=== PATIENT | female | born 1940 | race Caucasian/White ===

== ENCOUNTER 2019-12-21 05:30 | Emergency (ER) | payer MEDICARE ==
[~2019-12-21] VITALS: Ht 162.6 cm; Wt 89.6 kg
--- NOTE | 2019-12-21 06:19 | REPVR ---
PROCEDURE INFORMATION: Exam: CT Head Without Contrast Exam date and time: 12/21/2019 5:34 AM Age: 79 years old Clinical indication: Injury or trauma; Fall; Initial encounter; Concussion / head injury; Additional info: Fall on coumadin hit head TECHNIQUE: Imaging protocol: Computed tomography of the head without contrast. Radiation optimization: All CT scans at this facility use at least one of these dose optimization techniques: automated exposure control; mA and/or kV adjustment per patient size (includes targeted exams where dose is matched to clinical indication); or iterative reconstruction. COMPARISON: No relevant prior studies available. FINDINGS: Brain: No acute intracerebral abnormality or injury. No acute infarct or intracerebral bleed. Mild age-appropriate cerebral atrophy with patchy periventricular leukomalacia in both cerebral hemispheres, consistent with chronic underlying small vessel ischemic disease. Ventricles: Normal. No ventriculomegaly. Bones/joints: Unremarkable. No acute fracture. Sinuses: Visualized sinuses are unremarkable. No fluid levels. Mastoid air cells: Visualized mastoid air cells are well aerated. Soft tissues: Soft tissue swelling and subcutaneous contusion is seen in the right paramedian frontal scalp on image 12 of series 201, with no underlying calvarial fractures identified. IMPRESSION: 1. Soft tissue swelling and subcutaneous contusion is seen in the right paramedian frontal scalp on image 12 of series 201, with no underlying calvarial fractures identified. 2. No acute intracerebral abnormality or injury. No acute infarct or intracerebral bleed. 3. Mild age-appropriate cerebral atrophy with patchy periventricular leukomalacia in both cerebral hemispheres, consistent with chronic underlying small vessel ischemic disease. Electronically signed by: Carlito Grady On 12/21/2019 06:19:45 AM
[2019-12-21] MEDS ORDERED: MORPHINE 2 MG/ML 1ML VIAL (J2270) IV PRN (06:45)
--- NOTE | 2019-12-21 06:47 | REP ---
Clinical: Trauma. Fall. Technique: Two portable views of the left humerus. Findings: There is a displaced oblique fracture through the mid left humeral shaft. Impression: Oblique mid humeral shaft fracture. Electronically Signed by Lionel Leone MD 12/21/2019 06:38 A
--- NOTE | 2019-12-21 06:51 | REP ---
Clinical: Trauma. Fall. Comparison: None. Findings: Cardiomegaly is appreciated along with diffuse increased interstitial markings as well as suspected pulmonary vascular congestion and interstitial edema. Ovoid density in the right mid lung zone is nonspecific but may represent trapped fluid (pseudotumor) versus mass. No obvious effusion or pneumothorax. Skeletal structures demonstrate osteopenia and degenerative changes without obvious acute fracture. Impression: 1. Cardiomegaly with presumed acute/chronic pulmonary vascular congestion and interstitial edema as well as diffuse chronic changes. 2. Ovoid density in the right mid lung zone. Differential diagnosis includes but is not limited to trapped fluid (pseudotumor), consolidation, and mass lesion Electronically Signed by Lionel Leone MD 12/21/2019 06:42 A
--- NOTE | 2019-12-21 06:58 | REPVR ---
PROCEDURE INFORMATION: Exam: CT Cervical Spine Without Contrast Exam date and time: 12/21/2019 5:34 AM Age: 79 years old Clinical indication: Neck pain; Additional info: Fall on coumadin hit head TECHNIQUE: Imaging protocol: Computed tomography images of the cervical spine without contrast. Radiation optimization: All CT scans at this facility use at least one of these dose optimization techniques: automated exposure control; mA and/or kV adjustment per patient size (includes targeted exams where dose is matched to clinical indication); or iterative reconstruction. COMPARISON: No relevant prior studies available. FINDINGS: Vertebrae: The cervical spine alignment in the sagittal plane shows mild, less than 10% anterolisthesis of C4 upon C5 and C7 upon T1, likely secondary to chronic degenerative ligamentous laxity. Chronic degenerative vertebral body endplate osteophytosis with diminished disc height and anterior longitudinal ligament calcification is seen at levels C5-C7. Discs/Spinal canal/Neural foramina: Chronic degenerative bony neuroforaminal stenosis secondary to uncal joint and posterior facet joint arthropathy, bilaterally at C3/C4 and on the right at C4/C5 and bilaterally at C5/C6 and C6/C7. No significant spinal canal stenoses. Other bones/joints: No acute fractures identified. Soft tissues: Unremarkable prevertebral and posterior paraspinal soft tissues. Lungs: Lung apices are normal. IMPRESSION: 1. No acute fractures identified. 2. The cervical spine alignment in the sagittal plane shows mild, less than 10% anterolisthesis of C4 upon C5 and C7 upon T1, likely secondary to chronic degenerative ligamentous laxity. 3. Chronic degenerative vertebral body endplate osteophytosis with diminished disc height and anterior longitudinal ligament calcification is seen at levels C5-C7. 4. Chronic degenerative bony neuroforaminal stenosis secondary to uncal joint and posterior facet joint arthropathy, bilaterally at C3/C4 and on the right at C4/C5 and bilaterally at C5/C6 and C6/C7. 5. No significant spinal canal stenoses. Electronically signed by: Carlito Grady On 12/21/2019 06:58:08 AM
[2019-12-21] MEDS ORDERED: DILUENT IV ONE (07:15)
[2019-12-21] MEDS ORDERED: PROTHROMBIN COMPLEX CONCENTRAT IV ONE (07:15)
[2019-12-21] MEDS ORDERED: PHYTONADIONE INJection 5 MG in NS 50 ML IV ONE (07:15)
[2019-12-21 07:48] LABS: BASO % 0.2 % (0.0-1.0); EOS % 0.4 % (0.0-3.0); HEMATOCRIT 43.1 % (36.0-47.0); HEMOGLOBIN 12.4 g/dl (12.0-15.5); LYMPH # 0.6 10^3/uL (1.5-5.0); MEAN CORPUSCULAR HEMOGLOBIN 25.1 pg (27.0-33.0); MEAN CORPUSCULAR HGB CONC 28.8 g/dl (32.0-36.5); MEAN CORPUSCULAR VOLUME 87.1 fl (80.0-96.0); MONO # 0.5 10^3/uL (0.0-0.8); MONO % 5.5 % (0.0-5.0); NEUTROPHILS # 7.2 10^3/uL (1.5-8.5); NEUTROPHILS % 86.7 % (36.0-66.0); PLATELET COUNT, AUTOMATED 155 10^3/uL (150-450); RED BLOOD COUNT 4.95 10^6/uL (4.00-5.40); WHITE BLOOD COUNT 8.3 10^3/uL (4.0-10.0)
[2019-12-21 07:56] VITALS: BP 124/60
[2019-12-21 08:23] LABS: BLOOD UREA NITROGEN 12 MG/DL (7-18); CALCIUM LEVEL 6.6 MG/DL (8.8-10.2); CARBON DIOXIDE LEVEL 24 MEQ/L (21-32); CHLORIDE LEVEL 119 MEQ/L (98-107); CK-MB VALUE MASS 1.4 NG/ML (<3.6); CPK CREATINE PHOSPHOKINASE 100 U/L (26-192); CREATININE FOR GFR 0.55 MG/DL (0.55-1.30); GLOMERULAR FILTRATION RATE > 60.0 (>39); GLUCOSE, FASTING 45 MG/DL (70-100); POTASSIUM SERUM 3.7 MEQ/L (3.5-5.1); SODIUM LEVEL 149 MEQ/L (136-145); TROPONIN I 0.02 NG/ML (< 0.10)
--- NOTE | 2019-12-21 15:02 | ECGEPIP ---
[facility] - ED Test Date: 2019-12-21 Pat Name: GREY ABARCA Department: Room: - Gender: Female It Lead: JERICHO : 1940 Requested By: HANNAH Durant Order Number: [id number] Reading MD: Leanne Claros Measurements Intervals [place] Rate: 101 P: WV: 0 QRS: 97 QRSD: 93 T: 23 QT: 343 QTc: 446 Interpretive Statements ATRIAL FIBRILLATION WITH RAPID VENTRICULAR RESPONSE BORDERLINE RIGHT AXIS DEVIATION NONSPECIFIC ST & T-WAVE ABNORMALITY ABNORMAL RHYTHM ECG baseline artifact may affect interpretation NO PRIOR Electronically Signed on 12-21-2019 15:01:53 EST by Leanne Claros
== END 2019-12-21 08:02 | disposition short-term general hospital (02) ==
LOC: M ED 05:30
DX: S06.5X0A Traumatic subdural hemorrhage without loss of consciousness, initial encounter (principal); S06.6X0A Traumatic subarachnoid hemorrhage without loss of consciousness, initial encounter; S42.332A Displaced oblique fracture of shaft of humerus, left arm, initial encounter for closed fracture; W18.39XA Other fall on same level, initial encounter; Y92.018 Other place in single-family (private) house as the place of occurrence of the external cause
CPT/HCPCS: 70450; 71045; 72125; 73060; 80047; 80048; 82550; 82553; 84484; 85025; 86850; 86900; 86901; 93005; 96365; 96375; 99285; C9132; J2270; J3430

== ENCOUNTER → 2020-01-10 | Outpatient (REF) | payer MEDICARE ==
[2020-01-10 07:36] LABS: CALCIUM LEVEL 9.3 MG/DL (8.8-10.2); CREATININE FOR GFR 0.99 MG/DL (0.55-1.30); GLOMERULAR FILTRATION RATE 57.6 (>39); POTASSIUM SERUM 3.5 MEQ/L (3.5-5.1)
[2020-01-10 08:03] LABS: HEMOGLOBIN A1c 6.9 %
== END ==
LOC: SKLAB5 01:58
PROVIDERS: ATTEND Internal Medicine
DX: I50.9 Heart failure, unspecified (principal)

== ENCOUNTER → 2020-01-13 | Outpatient (CLI) | payer MEDICARE ==
--- NOTE | 2020-01-13 09:26 | ECHO ---
DATE OF PROCEDURE: 01/13/2020 REFERRING PHYSICIAN: Dr. Kolby Galan INDICATION: Congestive heart failure, aortic valve replacement, atrial fibrillation. The patient measures 5, 5 and weighs 175 pounds. Dimensions: IVS: 1.0 LV: 4.0 LVPW: 1.0 LA: 3.8 RV: 3.2 IVC: 1.4 Mitral E wave velocity averaging around 130. E prime septal: 5.1 E prime lateral: 5.9 FINDINGS: The study is of fair technical quality. The patient is in atrial fibrillation with controlled rate. Left ventricle is normal size. There is subtle septal wall motion abnormality but overall I estimate low normal LV systolic function, ejection fraction (EF) estimated around 50-55%. Right ventricle does not appear grossly enlarged and is normally contractile. There is severe biatrial enlargement. There is bioprosthetic valve in aortic position. It was poorly visualized and I cannot comment on its structure but based on available views it appears normal. There are heavy degenerative abnormalities of mitral valve with prominent mitral annular calcifications and thickening of mitral leaflets. Opening of the valve is preserved. Tricuspid valve is normal. Pulmonic valve also appears normal. No pericardial effusion is noted. Inferior vena cava is relatively small size and appropriately collapses with inspiration indicative of normal central venous pressure. Doppler interrogation of aortic valve reveals no insufficiency and normal gradient (mean gradient 8 mmHg). There is approximately [id number] mitral insufficiency and mild tricuspid insufficiency. Calculated pulmonary artery pressure is around 30 mmHg which indicates borderline pulmonary hypertension. Trace pulmonic insufficiency is seen. Evaluation of diastolic function is inconclusive due to underlying atrial fibrillation. CONCLUSIONS: 1. Study is of fair technical quality, patient is in atrial fibrillation with controlled rate and wide QRS complex. 2. Normal LV size with low normal LV systolic function, estimated left ventricular ejection fraction (LVEF) 50-55%. 3. Right ventricle (RV) is not dilated. 4. Severe biatrial enlargement. 5. Normally functioning bioprosthesis in aortic position. 6. Degenerative abnormalities of mitral valve leading to mild to moderate mitral insufficiency. 7. Normal central venous pressure. 8. Probably normal or borderline elevated pulmonary artery pressure. 9. Aortic arch and abdominal aorta were not seen. COMMENT: Subacute bacterial endocarditis (SBE) prophylaxis is recommended. MTDD
== END ==
LOC: M CARPUL 07:59
PROVIDERS: ATTEND Internal Medicine
DX: I50.9 Heart failure, unspecified (principal); I51.7 Cardiomegaly; I48.91 Unspecified atrial fibrillation; I34.0 Nonrheumatic mitral (valve) insufficiency

== ENCOUNTER → 2020-01-19 | Outpatient (REF) ==
[2020-01-19 09:30] LABS: BLOOD UREA NITROGEN 38 MG/DL (7-18); CALCIUM LEVEL 9.9 MG/DL (8.8-10.2); CARBON DIOXIDE LEVEL 35 MEQ/L (21-32); CHLORIDE LEVEL 95 MEQ/L (98-107); CREATININE FOR GFR 0.95 MG/DL (0.55-1.30); GLOMERULAR FILTRATION RATE > 60.0 (>39); GLUCOSE, FASTING 178 MG/DL (70-100); POTASSIUM SERUM 3.3 MEQ/L (3.5-5.1); SODIUM LEVEL 137 MEQ/L (136-145)
== END ==
LOC: SKLAB5 07:47
PROVIDERS: ATTEND Internal Medicine
DX: I50.9 Heart failure, unspecified (principal)

== ENCOUNTER → 2020-01-26 | Outpatient (REF) ==
[2020-01-26 09:49] LABS: BLOOD UREA NITROGEN 46 MG/DL (7-18); CALCIUM LEVEL 9.5 MG/DL (8.8-10.2); CARBON DIOXIDE LEVEL 34 MEQ/L (21-32); CHLORIDE LEVEL 95 MEQ/L (98-107); CREATININE FOR GFR 0.91 MG/DL (0.55-1.30); GLOMERULAR FILTRATION RATE > 60.0 (>39); GLUCOSE, FASTING 205 MG/DL (70-100); POTASSIUM SERUM 3.4 MEQ/L (3.5-5.1); SODIUM LEVEL 136 MEQ/L (136-145)
== END ==
LOC: SKLAB5 11:28
PROVIDERS: ATTEND Internal Medicine
DX: I50.9 Heart failure, unspecified (principal)

== ENCOUNTER → 2020-02-02 | Outpatient (REF) ==
[2020-02-02 09:17] LABS: BLOOD UREA NITROGEN 34 MG/DL (7-18); CALCIUM LEVEL 9.2 MG/DL (8.8-10.2); CARBON DIOXIDE LEVEL 32 MEQ/L (21-32); CHLORIDE LEVEL 97 MEQ/L (98-107); CREATININE FOR GFR 0.88 MG/DL (0.55-1.30); GLOMERULAR FILTRATION RATE > 60.0 (>39); GLUCOSE, FASTING 179 MG/DL (70-100); SODIUM LEVEL 137 MEQ/L (136-145)
== END ==
LOC: SKLAB5 07:48
PROVIDERS: ATTEND Internal Medicine
DX: I50.9 Heart failure, unspecified (principal)

== ENCOUNTER → 2020-02-06 | Outpatient (REF) ==
[2020-02-06 07:53] LABS: BLOOD UREA NITROGEN 33 MG/DL (7-18); CALCIUM LEVEL 9.3 MG/DL (8.8-10.2); CARBON DIOXIDE LEVEL 32 MEQ/L (21-32); CHLORIDE LEVEL 99 MEQ/L (98-107); CREATININE FOR GFR 0.94 MG/DL (0.55-1.30); GLOMERULAR FILTRATION RATE > 60.0 (>39); GLUCOSE, FASTING 140 MG/DL (70-100); SODIUM LEVEL 136 MEQ/L (136-145)
== END ==
LOC: SKLAB5 07:22
PROVIDERS: ATTEND Internal Medicine
DX: E87.6 Hypokalemia (principal)

== ENCOUNTER → 2020-02-09 | Outpatient (REF) | LOC: SKLAB5 08:35 | PROVIDERS: ATTEND Internal Medicine | DX: J44.9 Chronic obstructive pulmonary disease, unspecified (principal) ==

== ENCOUNTER → 2020-03-06 | Outpatient (REF) | payer MEDICARE ==
--- NOTE | 2020-03-06 15:54 | REPPI ---
CHEST, SINGLE VIEW: Single view of the chest is performed and compared to a prior study of 02/23/2020. There is again mild cardiomegaly. Interstitial opacities in the right lung base are stable. There is patchy parenchymal opacities laterally in the left base, which is unchanged. Mediastinal silhouette is unchanged. There are multiple sternal wires present. IMPRESSION: Mild cardiomegaly and bibasilar opacities unchanged. Electronically Signed by Lamin Garcia MD 03/06/2020 05:04 P
== END ==
PROVIDERS: ATTEND Registered Nurse
DX: R91.8 Other nonspecific abnormal finding of lung field (principal); I51.7 Cardiomegaly; J90 Pleural effusion, not elsewhere classified; R06.02 Shortness of breath

== ENCOUNTER → 2020-03-07 | Outpatient (REF) | payer MEDICARE ==
[2020-03-07 11:12] LABS: HEMATOCRIT 38.9 % (36.0-47.0); HEMOGLOBIN 12.4 g/dl (12.0-15.5); MEAN CORPUSCULAR HEMOGLOBIN 27.6 pg (27.0-33.0); MEAN CORPUSCULAR HGB CONC 31.9 g/dl (32.0-36.5); MEAN CORPUSCULAR VOLUME 86.4 fl (80.0-96.0); PLATELET COUNT, AUTOMATED 263 10^3/uL (150-450); WHITE BLOOD COUNT 8.8 10^3/uL (4.0-10.0)
[2020-03-07 11:21] LABS: CALCIUM LEVEL 9.8 MG/DL (8.8-10.2); CREATININE FOR GFR 1.13 MG/DL (0.55-1.30); GLOMERULAR FILTRATION RATE 49.4 (>39); POTASSIUM SERUM 4.2 MEQ/L (3.5-5.1)
== END ==
PROVIDERS: ATTEND Registered Nurse
DX: R06.02 Shortness of breath (principal)

== ENCOUNTER → 2020-03-14 | Outpatient (REF) | payer MEDICARE ==
[2020-03-14 10:14] LABS: CALCIUM LEVEL 9.2 MG/DL (8.8-10.2); CREATININE FOR GFR 1.47 MG/DL (0.55-1.30); GLOMERULAR FILTRATION RATE 36.5 (>39); POTASSIUM SERUM 3.8 MEQ/L (3.5-5.1)
== END ==
PROVIDERS: ATTEND Registered Nurse
DX: R06.02 Shortness of breath (principal)

== ENCOUNTER → 2020-03-26 | Outpatient (REF) | payer MEDICARE ==
--- NOTE | 2020-03-26 16:12 | REPPI ---
CHEST, SINGLE VIEW: Single view of the chest is performed and compared to a prior study of 03/06/2020. There is stable mild cardiomegaly. There are stable bibasilar parenchymal opacities. Mediastinal silhouette is unchanged. There are multiple sternal wires present. IMPRESSION: Stable exam. Electronically Signed by Lamin Garcia MD 03/26/2020 04:28 P
== END ==
PROVIDERS: ATTEND Registered Nurse
DX: R91.8 Other nonspecific abnormal finding of lung field (principal)

== ENCOUNTER → 2020-03-28 | Outpatient (CLI) | payer MEDICARE ==
--- NOTE | 2020-03-28 14:13 | REP ---
CT BRAIN WITHOUT CONTRAST: HISTORY: Subdural hematoma. Comparison head CT study December [address] FINDINGS: Vascular calcification is again noted in the distal vertebral and distal carotid arteries. The visualized paranasal sinuses are clear. No skull fracture is seen. The previously noted frontal scalp hematoma has resolved. There are small vessel atherosclerotic changes and generalized mild to moderate volume loss again seen unchanged. On the inner table of the skull in the left frontoparietal region, there is a 13 mm bony excrescence consistent with a calcified meningioma. This is unchanged from the comparison CT study of December 21, 2019. There is a tiny 4-5 mm similar excrescence the inner table of the skull on the right in the posterior frontal lobe region. This is also unchanged. The extra-axial hyperdense area in the left posterior frontal lobe on the recent prior study which was previously identified as a subdural hematoma is again seen. It is completely unchanged in size, density, and thickness. This suggests that it too may be a broad-based meningioma rather than a subdural hematoma. It measures 5 mm in greatest thickness x 28 mm in greatest anteroposterior dimension x 21 mm in greatest craniocaudal dimension unchanged from the prior study. If this had been an acute subdural hematoma we would expected to have involuted both in size and density. IMPRESSION: Findings most compatible with multiple small convexity meningiomas, the largest of which was previously felt to be compatible with an acute subdural hematoma. This is unchanged in the interval since the December 21, 2019 prior study. There are two smaller densely calcified meningiomas again seen as well. Generalized volume loss, small vessel changes, and vascular calcification are again noted. Electronically Signed by Santos Sofia MD 03/28/2020 02:39 P
== END ==
LOC: M RAD 13:29
PROVIDERS: ATTEND Neurological Surgery
DX: S06.5X9A Traumatic subdural hemorrhage with loss of consciousness of unspecified duration, initial encounter (principal)

== ENCOUNTER → 2020-05-07 | Outpatient (CLI) | payer MEDICARE, OTHER ==
--- NOTE | 2020-05-11 17:15 | SLEEPCENT ---
DATE OF PROCEDURE: 05/07/2020 ORDERED BY: JUNIOR Dewey Nocturnal polysomnography was performed for evaluation of sleep physiology in this patient with a history of snoring who has comorbidities of hypertension, heart failure, and diabetes. 8 hours and 3 minutes of data were reviewed. Only 96 minutes of sleep were identified. Sleep latency was prolonged at 166.5 minutes. Rapid eye movement (REM) sleep was not achieved. Sleep architecture showed poor progression. Overall sleep efficiency of 20.1%. The patient's electrocardiogram showed what appeared to be atrial fibrillation with an average heart rate of 76 beats per minute. Rate ranged 60-100. The electroencephalogram (EEG) showed reasonably normal waveforms for awake and sleep stages. There were 25 respiratory events identified of 10 seconds in duration or greater. During the interval, the patient did display sleep. The events were obstructive generating an apnea-hypopnea index of 15.6. The events were more six frequent but not exclusive to the supine posture. Arousals from respiratory events occurred 13.1 times per hour and oxygen desaturations were seen into the 80s. IMPRESSION: 1. Limited nocturnal polysomnography due to minimal sleep time. 2. Obstructive sleep apnea syndrome (G47.33). Apnea-hypopnea index 15.6. RECOMMENDATIONS: The patient had difficulty with sleep in the lab complaining of shoulder pain. Nonetheless, return to the sleep disorder center for pressure therapy is recommended. Perhaps interventions to address the patient's pain will improve sleep quality as well as pressure therapy.
== END ==
LOC: M SLEEP 20:00
PROVIDERS: ATTEND Physician Assistant
DX: R06.83 Snoring (principal); R09.02 Hypoxemia

== ENCOUNTER → 2020-09-11 | Outpatient (REF) | payer MEDICARE, OTHER ==
[2020-09-18 11:08] LABS: DOPAMINE PLASMA <30 pg/mL (0-48); EPINEPHRINE PLASMA 18 pg/mL (0-62); NOREPINEPHRINE PLASMA 660 pg/mL (0-874)
== END ==
LOC: M LAB REF 16:28
PROVIDERS: ATTEND Internal Medicine
DX: E27.9 Disorder of adrenal gland, unspecified (principal)

== ENCOUNTER → 2020-09-17 | Outpatient (CLI) | payer MEDICARE, OTHER ==
--- NOTE | 2020-09-17 13:44 | REP ---
INDICATION: F/U BILAT ADRENAL NODULES. COMPARISON: No available prior adrenal imaging.. TECHNIQUE: IV contrast was withheld in differences this patient's renal insufficiency.. Helical scanning is acquired without IV contrast and 3 mm axial images are generated. Coronal and sagittal MPR images are generated and reviewed. FINDINGS: Preliminary digital hospital librarian radiograph shows an unremarkable bowel gas pattern. Cardiomegaly and median sternotomy wires are noted. Axial CT images at this is lung bases demonstrate2 an area of parenchymal opacity in the left lower lobe consistent with an area of spiral atelectasis. There is adjacent pleural thickening. This may be postinflammatory. There is platelike atelectasis or linear fibrosis in the right base involving the right middle lobe. There is no evidence of pleural effusion or upper abdominal ascites. No focal hepatic or splenic lesion is seen. Axial CT images demonstrate bilateral low-density small oval-shaped adrenal nodules. Mean Hounsfield unit density on the right on this noncontrast study is -0.545. On the left a mean Hounsfield unit density of -13 is observed. These features are compatible with benign adrenal adenomas. The right-sided lesion measures 1.8 and the left 1.7 cm in diameter. No other adrenal lesion is seen. Peripherally calcified gallstones are seen within the lumen of the gallbladder. There is some gallbladder wall calcification at the fundus of the gallbladder. Vascular calcification is observed. No retroperitoneal mass or adenopathy is seen. Small and large bowel loops are unremarkable in the abdomen. No bony destructive lesion is seen. IMPRESSION: 1. Small benign adrenal adenomas bilaterally. Negative Hounsfield unit density numbers. 2. Spiral atelectasis left lower lobe. 3. Cholelithiasis. <Electronically signed by Porfirio Sofia > 09/17/20 [id number]
== END ==
LOC: M RAD 10:26
PROVIDERS: ATTEND Internal Medicine
DX: E27.8 Other specified disorders of adrenal gland (principal)

== ENCOUNTER → 2020-10-26 | Outpatient (REF) | payer MEDICARE, OTHER | PROVIDERS: ATTEND Internal Medicine | DX: Z20.828 Contact with and (suspected) exposure to other viral communicable diseases (principal) ==

== ENCOUNTER → 2020-10-31 | Outpatient (REF) | payer MEDICARE, OTHER ==
[2020-10-31 17:20] LABS: INFLUENZA A AMPLIFICATION NEGATIVE (NEGATIVE); INFLUENZA B AMPLIFICATION NEGATIVE (NEGATIVE)
== END ==
PROVIDERS: ATTEND Internal Medicine
DX: Z20.828 Contact with and (suspected) exposure to other viral communicable diseases (principal)
CPT/HCPCS: 87502; U0003

== ENCOUNTER → 2020-11-05 | Outpatient (REF) | payer MEDICARE, OTHER | PROVIDERS: ATTEND Internal Medicine | DX: Z20.828 Contact with and (suspected) exposure to other viral communicable diseases (principal) ==

== ENCOUNTER → 2020-11-12 | Outpatient (REF) | payer MEDICARE, OTHER | PROVIDERS: ATTEND Internal Medicine | DX: Z20.828 Contact with and (suspected) exposure to other viral communicable diseases (principal) ==

== ENCOUNTER → 2020-11-19 | Outpatient (REF) | payer MEDICARE, OTHER | PROVIDERS: ATTEND Internal Medicine | DX: Z11.52 Encounter for screening for COVID-19 (principal) ==

== ENCOUNTER → 2020-11-26 | Outpatient (REF) | payer MEDICARE, OTHER | PROVIDERS: ATTEND Internal Medicine | DX: Z20.822 Contact with and (suspected) exposure to COVID-19 (principal) ==

== ENCOUNTER → 2020-12-03 | Outpatient (REF) | payer MEDICARE, OTHER | PROVIDERS: ATTEND Internal Medicine | DX: Z20.822 Contact with and (suspected) exposure to COVID-19 (principal) ==

== ENCOUNTER → 2020-12-10 | Outpatient (REF) | payer MEDICARE, OTHER | PROVIDERS: ATTEND Internal Medicine | DX: Z20.822 Contact with and (suspected) exposure to COVID-19 (principal) ==

== ENCOUNTER → 2020-12-17 | Outpatient (REF) | payer MEDICARE, OTHER | PROVIDERS: ATTEND Internal Medicine | DX: Z20.822 Contact with and (suspected) exposure to COVID-19 (principal) ==

== ENCOUNTER → 2020-12-24 | Outpatient (REF) | payer MEDICARE, OTHER | PROVIDERS: ATTEND Internal Medicine | DX: Z20.822 Contact with and (suspected) exposure to COVID-19 (principal) ==

== ENCOUNTER → 2020-12-31 | Outpatient (REF) | payer MEDICARE, OTHER | PROVIDERS: ATTEND Internal Medicine | DX: Z20.822 Contact with and (suspected) exposure to COVID-19 (principal) ==

== ENCOUNTER → 2021-02-19 | Outpatient (CLI) | payer MEDICARE, OTHER, MEDICAID ==
--- NOTE | 2021-02-20 11:13 | ECHO ---
DATE OF PROCEDURE: 02/19/2021 Age: 80 Gender: Female Height: 65 inches Weight: 176 pounds Body Surface Area: 1.87 m2 PATIENT LOCATION: Outpatient. REFERRING PHYSICIAN: Kolby Galan MD. INDICATION: Heart murmur. MEASUREMENTS: 2D Measurements: RV 3.6 cm LV - 3.9 cm Septum 1.0 cm Posterior wall 1.0 cm Aortic Root 3.4 cm LA 4.2 cm LVEF 75% Doppler Measurements: AV 1.81 m/s LVOT 0.85 m/s LVOT diameter 1.8 cm MV-E 109, A 78, EA ratio 1.4 Early mitral deceleration time 277 msec E prime medial 5, A prime medial 4, E prime lateral 6.5 Average E/E prime ratio 19/PCWP 25.4 mmHg PV - 0.9 m/s Pulmonary artery acceleration time 114 msec PASP 32 mmHg IVC - 1.2 cm COMMENTS: Normal sinus rhythm without intraventricular conduction disturbance. Somewhat technically challenging study in light of the patient's body habitus, but diagnostically useful information was still obtained. M-mode and 2-dimensional echocardiography was performed with pulse, continuous wave, color flow, and tissue Doppler studies. Normal left ventricular size, wall thickness, and hyperkinetic wall motion. Mildly dilated left atrium with grade 2 LV diastolic dysfunction and elevated estimated mean left atrial pressure. Normal right heart chamber sizes and motion with Doppler evidence of mild pulmonary hypertension. Somewhat reduced IVC size with complete collapse against an elevated central venous pressure. Normal aortic diameters. Mild to moderate aortic valvular sclerosis with adequate cusp separation and no apparent insufficiency. Moderate mitral annular calcification and slight thickening of the mitral leaflets but adequate leaflet excursion and no posterior systolic buckling. At least mild mitral insufficiency. Normal appearing tricuspid valve with very mild insufficiency. No apparent intracardiac mass or pericardial effusion. MTDD
== END ==
LOC: M CARPUL 08:42
PROVIDERS: ATTEND Internal Medicine
DX: I50.32 Chronic diastolic (congestive) heart failure (principal)

== ENCOUNTER → 2021-09-03 | Outpatient (REF) | payer MEDICARE, OTHER, MEDICAID | LOC: M LAB REF 17:17 | PROVIDERS: ATTEND Internal Medicine | DX: J06.9 Acute upper respiratory infection, unspecified (principal) ==

== ENCOUNTER → 2022-02-26 | Outpatient (REF) | payer MEDICARE, OTHER, MEDICAID ==
[2022-02-26 11:48] LABS: CALCIUM LEVEL 9.6 MG/DL (8.8-10.2); CREATININE FOR GFR 1.24 MG/DL (0.55-1.30); GLOMERULAR FILTRATION RATE 44.2 (>32); POTASSIUM SERUM 4.1 MEQ/L (3.5-5.1)
== END ==
PROVIDERS: ATTEND Nurse Practitioner Adult Health
DX: I50.32 Chronic diastolic (congestive) heart failure (principal)

== ENCOUNTER → 2022-05-12 | Outpatient (REF) | payer MEDICARE, OTHER, MEDICAID ==
[2022-05-12 18:02] LABS: APPEARANCE, URINE CLEAR (CLEAR); BACTERIA, URINE AUTO NEGATIVE (NEGATIVE); BILIRUBIN, URINE AUTO NEGATIVE (NEGATIVE); BLOOD, URINE BLOOD NEGATIVE (NEGATIVE); COLOR, URINE STRAW (YELLOW); GLUCOSE, URINE (UA) AUTO 1+ mg/dL (NEGATIVE); KETONE, URINE AUTO NEGATIVE (NEGATIVE); LEUKOCYTE ESTERASE, URINE AUTO 1+ (NEGATIVE); NITRITE, URINE AUTO NEGATIVE (NEGATIVE); PROTEIN, URINE AUTO NEGATIVE (NEGATIVE); RBC, URINE AUTO 0 /HPF (0-3); SQUAMOUS EPITHELIAL CELL UR AU 0 /HPF (0-6); UROBILINOGEN, URINE AUTO 0.2 mg/dL (0.0-2.0); WBC, URINE AUTO 1 /HPF (0-3)
== END ==
PROVIDERS: ATTEND Internal Medicine
DX: R35.0 Frequency of micturition (principal); R41.0 Disorientation, unspecified

== ENCOUNTER → 2022-11-24 | Outpatient (REF) | payer MEDICARE, OTHER, MEDICAID ==
[2022-11-24 11:33] LABS: BASO # 0.1 10^3/uL (0.0-0.2); BASO % 0.5 % (0.0-1.0); EOS # 0.3 10^3/uL (0.0-0.5); HEMATOCRIT 39.6 % (36.0-47.0); HEMOGLOBIN 12.4 g/dl (12.0-15.5); LYMPH # 1.6 10^3/uL (1.5-5.0); LYMPH % 17.2 % (24.0-44.0); MEAN CORPUSCULAR HEMOGLOBIN 28.2 pg (27.0-33.0); MEAN CORPUSCULAR HGB CONC 31.3 g/dl (32.0-36.5); MONO # 0.7 10^3/uL (0.0-0.8); MONO % 7.3 % (2.0-8.0); NEUTROPHILS # 6.7 10^3/uL (1.5-8.5); NEUTROPHILS % 71.8 % (36.0-66.0); PLATELET COUNT, AUTOMATED 224 10^3/uL (150-450); WHITE BLOOD COUNT 9.4 10^3/uL (4.0-10.0)
[2022-11-24 11:51] LABS: HEMOGLOBIN A1c 7.3 % (4.0-6.0)
[2022-11-24 12:00] LABS: CALCIUM LEVEL 9.9 MG/DL (8.3-10.6); CHOLESTEROL RISK RATIO 3.76 (<5); CREATININE FOR GFR 1.19 MG/DL (0.55-1.30); GLOMERULAR FILTRATION RATE 46.2 (>32); HDL CHOLESTEROL 37.2 MG/DL (>40); POTASSIUM SERUM 4.3 MMOL/L (3.5-5.1)
== END ==
PROVIDERS: ATTEND Internal Medicine
DX: E11.65 Type 2 diabetes mellitus with hyperglycemia (principal); I13.0 Hypertensive heart and chronic kidney disease with heart failure and stage 1 through stage 4 chronic kidney disease, or unspecified chronic kidney disease; N18.32 Chronic kidney disease, stage 3b; Z79.4 Long term (current) use of insulin; E78.2 Mixed hyperlipidemia; I20.9 Angina pectoris, unspecified

== ENCOUNTER → 2023-02-23 | Outpatient (REF) | payer MEDICARE, OTHER, MEDICAID ==
[2023-02-23 09:23] LABS: BASO # 0.1 10^3/uL (0.0-0.2); EOS # 0.3 10^3/uL (0.0-0.5); EOS % 3.7 % (0.0-3.0); HEMATOCRIT 41.1 % (36.0-47.0); LYMPH # 1.6 10^3/uL (1.5-5.0); LYMPH % 19.2 % (24.0-44.0); MEAN CORPUSCULAR HGB CONC 31.6 g/dl (32.0-36.5); MEAN CORPUSCULAR VOLUME 88.6 fl (80.0-96.0); MONO # 0.6 10^3/uL (0.0-0.8); MONO % 6.6 % (2.0-8.0); NEUTROPHILS # 5.8 10^3/uL (1.5-8.5); NEUTROPHILS % 69.1 % (36.0-66.0); PLATELET COUNT, AUTOMATED 209 10^3/uL (150-450); RED BLOOD COUNT 4.64 10^6/uL (4.00-5.40); WHITE BLOOD COUNT 8.3 10^3/uL (4.0-10.0)
[2023-02-23 09:30] LABS: HEMOGLOBIN A1c 8.6 % (4.0-6.0)
[2023-02-23 09:43] LABS: CALCIUM LEVEL 9.5 MG/DL (8.3-10.6); CHOLESTEROL RISK RATIO 3.37 (<5); CREATININE FOR GFR 1.08 MG/DL (0.55-1.30); GLOMERULAR FILTRATION RATE 51.7 (>32); HDL CHOLESTEROL 39.1 MG/DL (>40); LDL CHOLESTEROL 66.7 MG/DL (<100); NON-HDL-C 92.9 MG/DL; POTASSIUM SERUM 3.9 MMOL/L (3.5-5.1)
== END ==
PROVIDERS: ATTEND Internal Medicine
DX: E11.65 Type 2 diabetes mellitus with hyperglycemia (principal); I13.0 Hypertensive heart and chronic kidney disease with heart failure and stage 1 through stage 4 chronic kidney disease, or unspecified chronic kidney disease; N18.32 Chronic kidney disease, stage 3b; E78.2 Mixed hyperlipidemia; Z79.4 Long term (current) use of insulin

== ENCOUNTER → 2023-11-19 | Outpatient (REF) | payer MEDICARE, OTHER, MEDICAID ==
[2023-11-19 16:57] LABS: RSV AMPLIFICATION NEGATIVE (NEGATIVE)
== END ==
PROVIDERS: ATTEND Internal Medicine
DX: R09.89 Other specified symptoms and signs involving the circulatory and respiratory systems (principal)

== ENCOUNTER → 2024-01-11 | Outpatient (CLI) | payer MEDICARE, OTHER | LOC: M PLAIMG 09:59 | PROVIDERS: ATTEND Internal Medicine | DX: I48.0 Paroxysmal atrial fibrillation (principal); I34.81 Nonrheumatic mitral (valve) annulus calcification ==

== ENCOUNTER 2024-02-08 08:37 | Inpatient (IN) | payer MEDICARE, OTHER ==
[2024-02-08 10:39] LABS: BASO % 0.6 % (0.0-1.0); EOS % 0.3 % (0.0-3.0); HEMATOCRIT 41.8 % (36.0-47.0); HEMOGLOBIN 13.2 g/dl (12.0-15.5); LYMPH # 0.6 10^3/uL (1.5-5.0); LYMPH % 8.6 % (24.0-44.0); MEAN CORPUSCULAR HEMOGLOBIN 27.6 pg (27.0-33.0); MEAN CORPUSCULAR HGB CONC 31.6 g/dl (32.0-36.5); MEAN CORPUSCULAR VOLUME 87.4 fl (80.0-96.0); MONO # 0.3 10^3/uL (0.0-0.8); MONO % 4.1 % (2.0-8.0); NEUTROPHILS # 6.1 10^3/uL (1.5-8.5); NEUTROPHILS % 86.1 % (36.0-66.0); PLATELET COUNT, AUTOMATED 179 10^3/uL (150-450); RED BLOOD COUNT 4.78 10^6/uL (4.00-5.40); WHITE BLOOD COUNT 7.1 10^3/uL (4.0-10.0)
[2024-02-08 10:50] LABS: INR 1.31; PROTHROMBIN TIME 15.9 SECONDS (12.5-14.5)
[2024-02-08 11:13] LABS: ALBUMIN 4.1 G/DL (3.2-5.2); ALKALINE PHOSPHATASE 113 U/L (46-116); ALT/SGPT 11 U/L (7.0-40); AST/SGOT 16 U/L (<34); BILIRUBIN,DIRECT 0.3 MG/DL (<0.4); BILIRUBIN,TOTAL 0.7 MG/DL (0.3-1.2); BLOOD UREA NITROGEN 38 MG/DL (9-23); CALCIUM LEVEL 9.5 MG/DL (8.3-10.6); CARBON DIOXIDE LEVEL 30 MMOL/L (20-31); CHLORIDE LEVEL 97 MMOL/L (98-107); CK-MB VALUE MASS < 1.0 NG/ML (<3.6); CREATININE FOR GFR 1.43 MG/DL (0.55-1.30); GLOMERULAR FILTRATION RATE 37.3 (>32); GLUCOSE, FASTING 217 MG/DL (74-106); SODIUM LEVEL 137 MMOL/L (136-145); TOTAL PROTEIN 8.1 G/DL (5.7-8.2)
[2024-02-08 11:17] LABS: CPK CREATINE PHOSPHOKINASE 41 U/L (34-145); MB/CK RELATIVE INDEX 2.43 (< OR =4)
[2024-02-08] MEDS ORDERED: ISOVUE-370 76% 100ML VIAL As Ordered ONE (12:22)
[2024-02-08] MEDS: IPRATROPIUM 0.5MG/ALBUTEROL 2.5MG INH SOL UD 3ML (DUONEB) NEB ONE (12:43)
[2024-02-08] MEDS: methylPREDNISolone 125MG 2ML VIAL IV ONE (12:47)
[2024-02-08 12:50] LABS: RSV AMPLIFICATION NEGATIVE (NEGATIVE)
[2024-02-08 13:01] LABS: VENOUS BASE EXCESS 0.5 (-2.0-2.0); VENOUS HCO3 27.6 MMOL/L (23.0-27.0); VENOUS O2 SATURATION 73.4 % (60.0-80.0); VENOUS PARTIAL PRESSURE CO2 55.1 mmHg (38.0-50.0); VENOUS PARTIAL PRESSURE O2 41.1 mmHg (30.0-50.0); VENOUS PH 7.318 UNITS (7.330-7.430); VENOUS STANDARD HCO3 24.4 MMOL/L; VENOUS TOTAL CO2 29.3 MMOL/L (24.0-28.0)
[2024-02-08 13:37] LABS: CK-MB VALUE MASS < 1.0 NG/ML (<3.6)
[2024-02-08 13:46] LABS: CPK CREATINE PHOSPHOKINASE 28 U/L (34-145); MB/CK RELATIVE INDEX 3.57 (< OR =4)
[2024-02-08] MEDS: cefTRIAXone SOD 1 GM in D5W MINI-BAG PLUS 50 ML IV ONE (14:34)
[2024-02-08] MEDS: AZITHROMYCIN 250MG TABLET PO ONE (14:34)
[2024-02-08] MEDS ORDERED: SPIR-10 PO (15:36)
[2024-02-08] MEDS ORDERED: BUME2TAB3 PO ×2 (15:36)
[2024-02-08] MEDS ORDERED: JARD1TAB PO (15:36)
[2024-02-08] MEDS ORDERED: POTA-298 PO (15:36)
[2024-02-08] MEDS ORDERED: LOSA50TA28 PO (15:36)
[2024-02-08] MEDS ORDERED: HUMA100I5 SC ×2 (15:36→15:49)
[2024-02-08] MEDS ORDERED: ROSU5TAB5 PO (15:36)
[2024-02-08] MEDS ORDERED: GLUCOSE 4GM CHEW TABLET PO PRN (15:45)
[2024-02-08] MEDS ORDERED: DEXTROSE 50% 50ML SYRINGE IV PRN (15:45)
[2024-02-08] MEDS ORDERED: GLUCAGON INJ 1MG VIAL SC PRN (15:45)
[2024-02-08] MEDS ORDERED: ELIQ2.5T PO (15:49)
[2024-02-08] MEDS ORDERED: LANTINJ4 SC (15:49)
[2024-02-08] MEDS ORDERED: CETI-24 PO (15:49)
[2024-02-08] MEDS ORDERED: VITA100066 PO (15:49)
[2024-02-08] MEDS ORDERED: LOPE2CAP PO (15:49)
[2024-02-08] MEDS ORDERED: MOM30SS PO (15:49)
[2024-02-08] MEDS ORDERED: LOPE1CAP5 PO (15:49)
[2024-02-08] MEDS ORDERED: ACET1TAB55 PO (15:49)
[2024-02-08] MEDS ORDERED: DULA3PEN SC (15:49)
[2024-02-08] MEDS ORDERED: METO50TA7 PO (15:49)
[2024-02-08] MEDS ORDERED: HOME MED LIST COMPLETE! XX SCH (15:50)
[2024-02-08] MEDS ORDERED: CETIRIZINE (ZyrTEC) 10 MG TAB PO PRN (16:00)
[2024-02-08] MEDS ORDERED: MOM 30ML SUSPENSION UDC PO PRN (16:00)
[2024-02-08] MEDS ORDERED: PILL CUTTER 1 EACH XX PRN (16:20)
[2024-02-08 16:33] LABS: PROCALCITONIN 0.07 ng/ml
[2024-02-08] MEDS: INSULIN LISPRO (NovoLOG) PER UNIT SC SCH ×2 (17:30→20:57)
[2024-02-08] MEDS: LACTOBACILLUS ACIDOPHILUS CAP (BACID) PO SCH (18:00)
[2024-02-08] MEDS: NS 1,000 ML IV SCH (18:24)
[2024-02-08] MEDS: IPRATROPIUM 0.5MG/ALBUTEROL 2.5MG INH SOL UD 3ML (DUONEB) NEB SCH (19:14)
[2024-02-08 20:00] VITALS: BP 136/74; TEMP 97.3; O2SAT 92
[2024-02-08] MEDS: LEVEMIR (INSULIN DETEMIR) 1 UNITS/0.01ML SC SCH (20:57)
[2024-02-08] MEDS: METOPROLOL TART 25 MG TABLET PO SCH (20:58)
[2024-02-08] MEDS: guaiFENesin ER TABLET 600 MG TAB PO SCH (20:58)
[2024-02-08] MEDS: BENZONATATE 100MG CAPSULE PO SCH (20:58)
[2024-02-08] MEDS: APIXABAN 2.5 MG TAB (ELIQUIS) PO SCH (20:58)
[2024-02-08] MEDS: ROSUVASTATIN 10 MG TAB (CRESTOR) PO SCH (20:58)
[2024-02-09] VITALS: BP 143/81; TEMP 97.8; O2SAT 93
[2024-02-09] MEDS: methylPREDNISolone 40MG 1ML VIAL IV SCH (01:40)
[2024-02-09 04:00] VITALS: BP 138/97; TEMP 96.9; O2SAT 93
[2024-02-09 05:42] LABS: BASO % 0.2 % (0.0-1.0); HEMATOCRIT 41.2 % (36.0-47.0); LYMPH # 0.5 10^3/uL (1.5-5.0); LYMPH % 8.6 % (24.0-44.0); MEAN CORPUSCULAR HEMOGLOBIN 27.5 pg (27.0-33.0); MEAN CORPUSCULAR HGB CONC 31.6 g/dl (32.0-36.5); MEAN CORPUSCULAR VOLUME 87.3 fl (80.0-96.0); MONO # 0.2 10^3/uL (0.0-0.8); MONO % 3.4 % (2.0-8.0); NEUTROPHILS # 5.2 10^3/uL (1.5-8.5); NEUTROPHILS % 87.3 % (36.0-66.0); PLATELET COUNT, AUTOMATED 173 10^3/uL (150-450); RED BLOOD COUNT 4.72 10^6/uL (4.00-5.40)
[2024-02-09 06:17] LABS: CALCIUM LEVEL 9.4 MG/DL (8.3-10.6); CREATININE FOR GFR 1.19 MG/DL (0.55-1.30); GLOMERULAR FILTRATION RATE 46.1 (>32); MAGNESIUM LEVEL 2.6 MG/DL (1.8-2.4); POTASSIUM SERUM 4.2 MMOL/L (3.5-5.1)
[2024-02-09 08:00] VITALS: BP 132/80; TEMP 97.7; O2SAT 100
[2024-02-09] MEDS: SENOKOT S TAB PO SCH (09:00)
[2024-02-09] MEDS ORDERED: CETIRIZINE (ZyrTEC) 10 MG TAB PO SCH (09:00)
[2024-02-09] MEDS: INSULIN LISPRO (NovoLOG) PER UNIT SC SCH (09:35)
[2024-02-09] MEDS: VITAMIN D 1,000 INTERNATIONAL UNITS TABLET PO SCH (09:41)
[2024-02-09] MEDS: AZITHROMYCIN 250MG TABLET PO SCH (09:43)
[2024-02-09 12:00] VITALS: BP 134/78; TEMP 97.7; O2SAT 97
[2024-02-09] MEDS: cefTRIAXone SOD 1 GM in D5W MINI-BAG PLUS 50 ML IV SCH (13:45)
[2024-02-09 14:00] VITALS: BP 130/80; TEMP 97.7; O2SAT 99
[2024-02-09] MEDS ORDERED: INSULIN LISPRO (NovoLOG) PER UNIT SC SCH (17:30)
[2024-02-09] MEDS: BUDESONIDE 0.5 MG/2 ML INHALATION SUSPENSION NEB SCH (20:11)
[2024-02-09 20:48] VITALS: BP 116/62; TEMP 98.1; O2SAT 95
[2024-02-10 00:17] VITALS: BP 128/72; TEMP 98; O2SAT 98
[2024-02-10] MEDS: ACETAMINOPHEN TAB 650MG DOSE (2X325MG) PO PRN (00:54)
[2024-02-10 03:41] VITALS: BP 138/76; TEMP 97.5; O2SAT 99
[2024-02-10 08:00] VITALS: BP 140/80; TEMP 97.7; O2SAT 93
[2024-02-10] MEDS: methylPREDNISolone 40MG 1ML VIAL IV SCH (08:48)
[2024-02-10 10:01] LABS: BASO % 0.1 % (0.0-1.0); HEMATOCRIT 41.9 % (36.0-47.0); HEMOGLOBIN 12.6 g/dl (12.0-15.5); LYMPH # 0.7 10^3/uL (1.5-5.0); LYMPH % 4.4 % (24.0-44.0); MEAN CORPUSCULAR HEMOGLOBIN 27.5 pg (27.0-33.0); MEAN CORPUSCULAR HGB CONC 30.1 g/dl (32.0-36.5); MEAN CORPUSCULAR VOLUME 91.5 fl (80.0-96.0); MONO # 1.2 10^3/uL (0.0-0.8); MONO % 7.7 % (2.0-8.0); NEUTROPHILS % 87.2 % (36.0-66.0); PLATELET COUNT, AUTOMATED 182 10^3/uL (150-450); RED BLOOD COUNT 4.58 10^6/uL (4.00-5.40)
[2024-02-10 11:58] VITALS: BP 128/82; TEMP 97.9; O2SAT 88
[2024-02-10] MEDS: LIDOCAINE 5% (LIDODERM) PATCH TD SCH (13:18)
[2024-02-10 14:08] LABS: CALCIUM LEVEL 9.2 MG/DL (8.3-10.6); CREATININE FOR GFR 1.14 MG/DL (0.55-1.30); GLOMERULAR FILTRATION RATE 48.5 (>32); MAGNESIUM LEVEL 2.3 MG/DL (1.8-2.4); POTASSIUM SERUM 4.8 MMOL/L (3.5-5.1)
[2024-02-10 16:00] VITALS: BP 124/78; TEMP 98.4; O2SAT 93
[2024-02-10 20:37] VITALS: BP 134/76; TEMP 98.6; O2SAT 96
[2024-02-11 05:32] VITALS: BP 144/68; TEMP 98.2; O2SAT 97
[2024-02-11 07:55] VITALS: BP 148/78; TEMP 97.4; O2SAT 94
[2024-02-11 12:15] VITALS: BP 138/82; TEMP 97.7; O2SAT 90
[2024-02-11 15:34] VITALS: BP 148/88; TEMP 97.9; O2SAT 97
[2024-02-11 18:53] VITALS: BP 124/78; TEMP 98.1; O2SAT 93
[2024-02-11 23:45] VITALS: BP 148/88; TEMP 97.5; O2SAT 91
[2024-02-12] VITALS (9 sets, daily range): BP systolic 142–168; BP diastolic 82–98; TEMP 97.3–98.1; O2SAT 81–95
[2024-02-12] MEDS: IPRATROPIUM 0.5MG/ALBUTEROL 2.5MG INH SOL UD 3ML (DUONEB) NEB PRN (04:57)
[2024-02-12] MEDS: CEFDINIR 300 MG CAP (OMNICEF) PO SCH (08:28)
[2024-02-12 10:49] LABS: BASO % 0.1 % (0.0-1.0); HEMATOCRIT 39.4 % (36.0-47.0); HEMOGLOBIN 12.2 g/dl (12.0-15.5); LYMPH # 0.4 10^3/uL (1.5-5.0); LYMPH % 2.8 % (24.0-44.0); MEAN CORPUSCULAR HEMOGLOBIN 27.5 pg (27.0-33.0); MEAN CORPUSCULAR VOLUME 88.7 fl (80.0-96.0); MONO # 0.4 10^3/uL (0.0-0.8); MONO % 3.2 % (2.0-8.0); NEUTROPHILS # 12.5 10^3/uL (1.5-8.5); NEUTROPHILS % 93.6 % (36.0-66.0); PLATELET COUNT, AUTOMATED 181 10^3/uL (150-450); RED BLOOD COUNT 4.44 10^6/uL (4.00-5.40); WHITE BLOOD COUNT 13.4 10^3/uL (4.0-10.0)
[2024-02-12 11:26] LABS: CALCIUM LEVEL 9.7 MG/DL (8.3-10.6); CREATININE FOR GFR 0.97 MG/DL (0.55-1.30); GLOMERULAR FILTRATION RATE 58.4 (>32); MAGNESIUM LEVEL 2.4 MG/DL (1.8-2.4); POTASSIUM SERUM 4.5 MMOL/L (3.5-5.1)
[2024-02-12] MEDS: IPRATROPIUM 0.5MG/ALBUTEROL 2.5MG INH SOL UD 3ML (DUONEB) NEB SCH (14:57)
[2024-02-12] MEDS: INSULIN LISPRO (NovoLOG) PER UNIT SC SCH (17:30)
[2024-02-12] MEDS: BUMETANIDE 1 MG TAB PO SCH (17:39)
[2024-02-12] MEDS: BUDESONIDE 180MCG INHALER (PULMICORT FLEXHALER) INH SCH (20:00)
[2024-02-12] MEDS: METOPROLOL TARTRATE 100MG TAB PO SCH (21:10)
[2024-02-13] VITALS (21 sets, daily range): BP systolic 139–154; BP diastolic 85–92; TEMP 97.3–97.5; O2SAT 70–97
[2024-02-13 08:18] LABS: CALCIUM LEVEL 9.8 MG/DL (8.3-10.6); CREATININE FOR GFR 1.04 MG/DL (0.55-1.30); GLOMERULAR FILTRATION RATE 53.9 (>32); MAGNESIUM LEVEL 2.4 MG/DL (1.8-2.4); POTASSIUM SERUM 4.4 MMOL/L (3.5-5.1)
[2024-02-13 08:22] LABS: BASO % 0.1 % (0.0-1.0); HEMATOCRIT 43.9 % (36.0-47.0); HEMOGLOBIN 13.5 g/dl (12.0-15.5); LYMPH % 4.8 % (24.0-44.0); MEAN CORPUSCULAR HEMOGLOBIN 26.9 pg (27.0-33.0); MEAN CORPUSCULAR HGB CONC 30.8 g/dl (32.0-36.5); MEAN CORPUSCULAR VOLUME 87.5 fl (80.0-96.0); NEUTROPHILS % 88.6 % (36.0-66.0); PLATELET COUNT, AUTOMATED 252 10^3/uL (150-450); RED BLOOD COUNT 5.02 10^6/uL (4.00-5.40); WHITE BLOOD COUNT 15.9 10^3/uL (4.0-10.0)
[2024-02-13 08:23] LABS: LYMPH # 0.8 10^3/uL (1.5-5.0); NEUTROPHILS # 14.1 10^3/uL (1.5-8.5)
[2024-02-13] MEDS: predniSONE 10MG TAB PO SCH (09:12)
[2024-02-13] MEDS: AMIODARONE 100MG TABLET (PACERONE) PO SCH (09:13)
[2024-02-13] MEDS: SPIRONOLACTONE 25 MG TAB PO SCH (09:14)
[2024-02-13] MEDS: INSULIN LISPRO (NovoLOG) PER UNIT SC SCH (09:17)
[2024-02-13] MEDS: AMIODARONE 100MG TABLET (PACERONE) PO ONE (11:53)
[2024-02-13] MEDS: ALPRAZolam 0.25 MG TAB PO PRN (21:17)
[2024-02-13 23:08] LABS: VENOUS BASE EXCESS 0.5 (-2.0-2.0); VENOUS HCO3 27.4 MMOL/L (23.0-27.0); VENOUS O2 SATURATION 96.7 % (60.0-80.0); VENOUS PARTIAL PRESSURE CO2 53.7 mmHg (38.0-50.0); VENOUS PARTIAL PRESSURE O2 90.6 mmHg (30.0-50.0); VENOUS PH 7.326 UNITS (7.330-7.430); VENOUS STANDARD HCO3 24.9 MMOL/L; VENOUS TOTAL CO2 29.1 MMOL/L (24.0-28.0)
[2024-02-13 23:10] LABS: HEMATOCRIT 39.7 % (36.0-47.0); HEMOGLOBIN 12.4 g/dl (12.0-15.5); MEAN CORPUSCULAR HEMOGLOBIN 27.3 pg (27.0-33.0); MEAN CORPUSCULAR HGB CONC 31.2 g/dl (32.0-36.5); MEAN CORPUSCULAR VOLUME 87.3 fl (80.0-96.0); RED BLOOD COUNT 4.55 10^6/uL (4.00-5.40); WHITE BLOOD COUNT 15.6 10^3/uL (4.0-10.0)
[2024-02-13 23:11] LABS: BASO % 0.1 % (0.0-1.0); LYMPH # 0.8 10^3/uL (1.5-5.0); LYMPH % 4.9 % (24.0-44.0); MONO # 0.9 10^3/uL (0.0-0.8); NEUTROPHILS # 13.8 10^3/uL (1.5-8.5); NEUTROPHILS % 88.6 % (36.0-66.0); PLATELET COUNT, AUTOMATED 238 10^3/uL (150-450)
[2024-02-13 23:35] LABS: CALCIUM LEVEL 8.8 MG/DL (8.3-10.6); CREATININE FOR GFR 1.12 MG/DL (0.55-1.30); GLOMERULAR FILTRATION RATE 49.5 (>32)
[2024-02-13 23:43] LABS: PROCALCITONIN 0.24 ng/ml
[2024-02-14] VITALS (9 sets, daily range): BP systolic 130–169; BP diastolic 78–89; TEMP 97.5–98.2; O2SAT 83–99
[2024-02-14] MEDS: AMIODARONE 200 MG TAB (PACERONE) PO SCH (09:48)
[2024-02-14 22:44] LABS: HEMATOCRIT 47.1 % (36.0-47.0); HEMOGLOBIN 14.2 g/dl (12.0-15.5); RED BLOOD COUNT 5.26 10^6/uL (4.00-5.40); WHITE BLOOD COUNT 12.3 10^3/uL (4.0-10.0)
[2024-02-14 22:45] LABS: BASO % 0.1 % (0.0-1.0); EOS % 0.1 % (0.0-3.0); LYMPH # 0.6 10^3/uL (1.5-5.0); LYMPH % 4.9 % (24.0-44.0); MEAN CORPUSCULAR HGB CONC 30.1 g/dl (32.0-36.5); MEAN CORPUSCULAR VOLUME 89.5 fl (80.0-96.0); MONO # 0.7 10^3/uL (0.0-0.8); MONO % 5.5 % (2.0-8.0); NEUTROPHILS % 89.1 % (36.0-66.0); PLATELET COUNT, AUTOMATED 221 10^3/uL (150-450)
[2024-02-14 23:04] LABS: ALBUMIN 3.3 G/DL (3.2-5.2); BILIRUBIN,TOTAL 0.3 MG/DL (0.3-1.2); CALCIUM LEVEL 9.4 MG/DL (8.3-10.6); CREATININE FOR GFR 1.02 MG/DL (0.55-1.30); GLOMERULAR FILTRATION RATE 55.1 (>32); MAGNESIUM LEVEL 2.2 MG/DL (1.8-2.4); TOTAL PROTEIN 6.9 G/DL (5.7-8.2)
[2024-02-14 23:11] LABS: PROCALCITONIN 0.11 ng/ml
[2024-02-15] VITALS (9 sets, daily range): BP systolic 135–143; BP diastolic 82–98; TEMP 97–97.7; O2SAT 82–98
[2024-02-15] MEDS: BUDESONIDE 0.5 MG/2 ML INHALATION SUSPENSION NEB SCH (07:30)
[2024-02-15] MEDS: LEVALBUTEROL 1.25MG 0.5ML CONCENTRATE NEB INH SCH (07:30)
[2024-02-15] MEDS: INSULIN LISPRO (NovoLOG) PER UNIT SC SCH ×2 (09:24→17:14)
[2024-02-15 10:13] LABS: BASO % 0.1 % (0.0-1.0); EOS # 0.1 10^3/uL (0.0-0.5); EOS % 0.9 % (0.0-3.0); HEMATOCRIT 48.6 % (36.0-47.0); HEMOGLOBIN 14.9 g/dl (12.0-15.5); LYMPH # 1.5 10^3/uL (1.5-5.0); LYMPH % 11.1 % (24.0-44.0); MEAN CORPUSCULAR HEMOGLOBIN 27.5 pg (27.0-33.0); MEAN CORPUSCULAR HGB CONC 30.7 g/dl (32.0-36.5); MEAN CORPUSCULAR VOLUME 89.7 fl (80.0-96.0); MONO # 0.9 10^3/uL (0.0-0.8); MONO % 6.4 % (2.0-8.0); NEUTROPHILS # 11.1 10^3/uL (1.5-8.5); NEUTROPHILS % 80.9 % (36.0-66.0); PLATELET COUNT, AUTOMATED 266 10^3/uL (150-450); RED BLOOD COUNT 5.42 10^6/uL (4.00-5.40); WHITE BLOOD COUNT 13.8 10^3/uL (4.0-10.0)
[2024-02-15 10:52] LABS: CALCIUM LEVEL 9.3 MG/DL (8.3-10.6); GLOMERULAR FILTRATION RATE 56.4 (>32); MAGNESIUM LEVEL 2.2 MG/DL (1.8-2.4); POTASSIUM SERUM 4.1 MMOL/L (3.5-5.1)
[2024-02-15] MEDS ORDERED: DIGOXIN INJ 0.5 MG/2 ML AMP IV STA (14:20)
[2024-02-15] MEDS: DIGOXIN 0.125 MG TAB PO STA (15:06)
[2024-02-16 05:15] VITALS: BP 142/78; TEMP 97.2; O2SAT 95
[2024-02-16] MEDS ORDERED: LOSA25TA13 PO (08:07)
[2024-02-16] MEDS ORDERED: RISATAB3 PO (08:07)
[2024-02-16] MEDS ORDERED: BENZ-18 PO (08:07)
[2024-02-16] MEDS ORDERED: BUME2TAB3 PO (08:07)
[2024-02-16] MEDS ORDERED: DIGO0.253 PO (08:07)
[2024-02-16] MEDS ORDERED: MUCI600T31 PO (08:07)
[2024-02-16] MEDS ORDERED: SENN-52 PO (08:07)
[2024-02-16] MEDS ORDERED: LOPR1TAB7 PO (08:07)
[2024-02-16] MEDS ORDERED: ALBU8.5H INH (08:16)
[2024-02-16 09:14] VITALS: BP 163/82
[2024-02-16] MEDS: DIGOXIN 0.25 MG TAB PO SCH (09:14)
[2024-02-16] MEDS ORDERED: PRED20TA PO (09:29)
[2024-02-16] MEDS: predniSONE 20 MG TAB PO ONE (10:09)
== END 2024-02-16 10:18 | DRG 190 ==
LOC: M ED 08:37 → EDBD 08:37 → M ED INP 14:40 → OBSVTOIN 15:11 → ENRESERV 15:14 → M PCU 16:34 → M MSPAV 02-11 23:44
PROVIDERS: ADMIT Internal Medicine; ATTEND Internal Medicine
DX: J44.1 Chronic obstructive pulmonary disease with (acute) exacerbation (principal); J18.9 Pneumonia, unspecified organism; I50.32 Chronic diastolic (congestive) heart failure; J98.11 Atelectasis; N17.9 Acute kidney failure, unspecified; I48.91 Unspecified atrial fibrillation; N18.31 Chronic kidney disease, stage 3a; E11.22 Type 2 diabetes mellitus with diabetic chronic kidney disease; E78.5 Hyperlipidemia, unspecified; R29.6 Repeated falls; K21.9 Gastro-esophageal reflux disease without esophagitis; K59.00 Constipation, unspecified; B34.8 Other viral infections of unspecified site; E55.9 Vitamin D deficiency, unspecified; E87.6 Hypokalemia; Z66 Do not resuscitate; Z79.4 Long term (current) use of insulin; Z79.01 Long term (current) use of anticoagulants; Z79.899 Other long term (current) drug therapy; J44.0 Chronic obstructive pulmonary disease with (acute) lower respiratory infection; Z95.3 Presence of xenogenic heart valve; Z87.891 Personal history of nicotine dependence

== ENCOUNTER 2024-02-18 09:21 | Inpatient (IN) | payer MEDICARE, OTHER ==
[~2024-02-18] VITALS: Ht 167.6 cm; Wt 75.5 kg
[~2024-02-18 09:21] MED LIST: ACET1TAB55 PO; ALBU8.5H INH; BENZ-18 PO; BUME2TAB3 PO; CETI-24 PO; DIGO0.253 PO; DULA3PEN SC; ELIQ2.5T PO; HUMA100I5 SC; JARD1TAB PO; LANTINJ4 SC; LOPE1CAP5 PO; LOPE2CAP PO; LOPR1TAB7 PO; LOSA25TA13 PO; LOSA50TA28 PO; METO50TA7 PO; MOM30SS PO; MUCI600T31 PO; POTA-298 PO; PRED20TA PO; RISATAB3 PO; ROSU5TAB5 PO; SENN-52 PO; SPIR-10 PO; VITA100066 PO
[2024-02-18] MEDS: IPRATROPIUM 0.5MG/ALBUTEROL 2.5MG INH SOL UD 3ML (DUONEB) NEB PRN (09:59)
[2024-02-18 10:06] LABS: ABG BASE EXCESS 5.5 (-2.0-2.0); ABG HCO3 30.4 MMOL/L (22.0-26.0); ABG O2 SATURATION 92.6 % (95.0-99.0); ABG PARTIAL PRESSURE CO2 45.6 mmHg (35.0-45.0); ABG PARTIAL PRESSURE O2 59.2 mmHg (75.0-100.0); ABG STANDARD HCO3 29.3 MMOL/L. (22.0-26.0); ABG TOTAL CO2 31.8 MMOL/L (23.0-31.0); ABG pH (ARTERIAL) 7.442 UNITS (7.350-7.450)
[2024-02-18] MEDS ORDERED: BUME2TAB3 PO (11:15)
[2024-02-18] MEDS ORDERED: GUAI600T54 PO (11:15)
[2024-02-18] MEDS ORDERED: METO100T5 PO (11:15)
[2024-02-18] MEDS ORDERED: HOME MED LIST COMPLETE! XX SCH (11:15)
[2024-02-18] MEDS ORDERED: ALBU10.7 INH (11:15)
[2024-02-18] MEDS ORDERED: DIGO0.253 PO (11:15)
[2024-02-18] MEDS ORDERED: SENN-52 PO (11:15)
[2024-02-18] MEDS ORDERED: LOSA25TA13 PO (11:15)
[2024-02-18] MEDS ORDERED: RISATAB3 PO (11:15)
[2024-02-18] MEDS ORDERED: BENZ-18 PO (11:15)
[2024-02-18 11:41] LABS: BASO % 0.1 % (0.0-1.0); EOS % 0.1 % (0.0-3.0); HEMATOCRIT 43.8 % (36.0-47.0); HEMOGLOBIN 13.2 g/dl (12.0-15.5); LYMPH # 0.8 10^3/uL (1.5-5.0); LYMPH % 4.4 % (24.0-44.0); MEAN CORPUSCULAR HEMOGLOBIN 26.7 pg (27.0-33.0); MEAN CORPUSCULAR HGB CONC 30.1 g/dl (32.0-36.5); MEAN CORPUSCULAR VOLUME 88.5 fl (80.0-96.0); MONO # 0.4 10^3/uL (0.0-0.8); MONO % 2.3 % (2.0-8.0); NEUTROPHILS # 17.6 10^3/uL (1.5-8.5); NEUTROPHILS % 92.3 % (36.0-66.0); PLATELET COUNT, AUTOMATED 251 10^3/uL (150-450); RED BLOOD COUNT 4.95 10^6/uL (4.00-5.40); WHITE BLOOD COUNT 19.1 10^3/uL (4.0-10.0)
[2024-02-18 12:08] LABS: CK-MB VALUE MASS 2.2 NG/ML (<3.6)
[2024-02-18 12:11] LABS: ALBUMIN 3.3 G/DL (3.2-5.2); BILIRUBIN,DIRECT 0.2 MG/DL (<0.4); BILIRUBIN,TOTAL 0.5 MG/DL (0.3-1.2); CALCIUM LEVEL 9.3 MG/DL (8.3-10.6); CREATININE FOR GFR 1.04 MG/DL (0.55-1.30); DIGOXIN LEVEL 0.8 NG/ML (0.8-2.0); GLOMERULAR FILTRATION RATE 53.9 (>32); POTASSIUM SERUM 4.7 MMOL/L (3.5-5.1); TOTAL PROTEIN 6.6 G/DL (5.7-8.2)
[2024-02-18 12:13] LABS: MB/CK RELATIVE INDEX 7.33 (< OR =4)
[2024-02-18] MEDS: DIGOXIN 0.25 MG TAB PO STA (12:27)
[2024-02-18] MEDS: METOPROLOL TARTRATE 100MG TAB PO ONE (12:27)
[2024-02-18] MEDS ORDERED: LOPERAMIDE 2 MG CAPLET PO PRN (12:45)
[2024-02-18] MEDS ORDERED: GLUCAGON INJ 1MG VIAL SC PRN (12:50)
[2024-02-18] MEDS ORDERED: DEXTROSE 50% 50ML SYRINGE IV PRN (12:50)
[2024-02-18] MEDS ORDERED: GLUCOSE 4GM CHEW TABLET PO PRN (12:50)
[2024-02-18] MEDS: BENZONATATE 100MG CAPSULE PO SCH (13:35)
[2024-02-18] MEDS: CETIRIZINE (ZyrTEC) 10 MG TAB PO PRN (13:35)
[2024-02-18] MEDS: SPIRONOLACTONE 25 MG TAB PO SCH (13:35)
[2024-02-18] MEDS: guaiFENesin ER TABLET 600 MG TAB PO SCH (13:35)
[2024-02-18] MEDS: methylPREDNISolone 125MG 2ML VIAL IV ONE (13:36)
[2024-02-18] MEDS: APIXABAN 5 MG TAB (ELIQUIS) PO SCH (14:11)
[2024-02-18] MEDS: IPRATROPIUM 0.02% SOLN 0.5MG 2.5ML NEB INH SCH (15:40)
[2024-02-18] MEDS: LEVALBUTEROL 1.25MG 0.5ML CONCENTRATE NEB INH SCH (15:40)
[2024-02-18] MEDS: METOPROLOL TART 50 MG TAB PO SCH (18:05)
[2024-02-18] MEDS: LACTOBACILLUS ACIDOPHILUS CAP (BACID) PO SCH (18:06)
[2024-02-18] MEDS: DIGOXIN INJ 0.5 MG/2 ML AMP IV SCH (18:06)
[2024-02-18 18:34] VITALS: BP 196/84; TEMP 97.7; O2SAT 97
[2024-02-18] MEDS: NITROGLYCERIN 2% OINT 1 GM *U/D* PKT TOP ONE (19:02)
[2024-02-18] MEDS: METOPROLOL TART 25 MG TABLET PO ONE (19:02)
[2024-02-18] MEDS: INSULIN LISPRO (NovoLOG) PER UNIT SC SCH ×3 (19:18→21:01)
[2024-02-18 19:59] VITALS: BP 144/66
[2024-02-18] MEDS ORDERED: cloNIDine 0.1MG TABLET PO PRN (20:00)
[2024-02-18] MEDS: methylPREDNISolone 40MG 1ML VIAL IV SCH (20:58)
[2024-02-18] MEDS: ROSUVASTATIN 10 MG TAB (CRESTOR) PO SCH (20:59)
[2024-02-18] MEDS: ACETAMINOPHEN TAB 650MG DOSE (2X325MG) PO SCH (21:00)
[2024-02-18] MEDS: LEVEMIR (INSULIN DETEMIR) 1 UNITS/0.01ML SC SCH (21:01)
[2024-02-18] MEDS ORDERED: PILL CUTTER 1 EACH XX ONE (21:06)
[2024-02-18 23:56] VITALS: BP 118/57; TEMP 97.2; O2SAT 93
[2024-02-19] VITALS (8 sets, daily range): BP systolic 107–186; BP diastolic 58–95; TEMP 96.8–97.8; O2SAT 92–100
[2024-02-19 06:05] LABS: BASO % 0.1 % (0.0-1.0); HEMATOCRIT 39.4 % (36.0-47.0); HEMOGLOBIN 12.4 g/dl (12.0-15.5); LYMPH # 0.4 10^3/uL (1.5-5.0); LYMPH % 2.9 % (24.0-44.0); MEAN CORPUSCULAR HEMOGLOBIN 26.8 pg (27.0-33.0); MEAN CORPUSCULAR HGB CONC 31.5 g/dl (32.0-36.5); MEAN CORPUSCULAR VOLUME 85.3 fl (80.0-96.0); MONO # 0.2 10^3/uL (0.0-0.8); MONO % 1.1 % (2.0-8.0); NEUTROPHILS # 13.6 10^3/uL (1.5-8.5); NEUTROPHILS % 95.1 % (36.0-66.0); PLATELET COUNT, AUTOMATED 210 10^3/uL (150-450); RED BLOOD COUNT 4.62 10^6/uL (4.00-5.40); WHITE BLOOD COUNT 14.3 10^3/uL (4.0-10.0)
[2024-02-19 06:27] LABS: CALCIUM LEVEL 9.1 MG/DL (8.3-10.6); CREATININE FOR GFR 1.12 MG/DL (0.55-1.30); GLOMERULAR FILTRATION RATE 49.5 (>32); MAGNESIUM LEVEL 2.1 MG/DL (1.8-2.4); POTASSIUM SERUM 4.3 MMOL/L (3.5-5.1)
[2024-02-19] MEDS: VITAMIN D 1,000 INTERNATIONAL UNITS TABLET PO SCH (08:15)
[2024-02-19] MEDS: POTASSIUM CHLORIDE 10MEQ SR TABLET PO SCH (08:16)
[2024-02-19] MEDS: SENOKOT S TAB PO SCH (08:16)
[2024-02-19] MEDS: atenoloL 50 MG TAB PO ONE (08:17)
[2024-02-19] MEDS: BUMETANIDE 1 MG TAB PO SCH (08:58)
[2024-02-19 10:22] LABS: HEMOGLOBIN A1c 7.5 % (4.0-6.0)
[2024-02-19] MEDS: DIGOXIN INJ 0.5 MG/2 ML AMP IV STA (13:40)
[2024-02-19] MEDS: DIGOXIN INJ 0.5 MG/2 ML AMP IV ONE (18:32)
[2024-02-19] MEDS: atenoloL 50 MG TAB PO SCH (20:50)
[2024-02-20 03:08] VITALS: BP 134/70; TEMP 97.2; O2SAT 93
[2024-02-20 06:06] LABS: BASO % 0.1 % (0.0-1.0); HEMATOCRIT 39.8 % (36.0-47.0); HEMOGLOBIN 12.6 g/dl (12.0-15.5); LYMPH # 0.4 10^3/uL (1.5-5.0); LYMPH % 1.6 % (24.0-44.0); MEAN CORPUSCULAR HEMOGLOBIN 27.2 pg (27.0-33.0); MEAN CORPUSCULAR HGB CONC 31.7 g/dl (32.0-36.5); MEAN CORPUSCULAR VOLUME 85.8 fl (80.0-96.0); MONO # 0.3 10^3/uL (0.0-0.8); MONO % 1.1 % (2.0-8.0); NEUTROPHILS # 22.2 10^3/uL (1.5-8.5); NEUTROPHILS % 96.3 % (36.0-66.0); PLATELET COUNT, AUTOMATED 201 10^3/uL (150-450); RED BLOOD COUNT 4.64 10^6/uL (4.00-5.40)
[2024-02-20 06:25] LABS: CALCIUM LEVEL 9.2 MG/DL (8.3-10.6); CREATININE FOR GFR 1.41 MG/DL (0.55-1.30); GLOMERULAR FILTRATION RATE 37.9 (>32); MAGNESIUM LEVEL 2.3 MG/DL (1.8-2.4); POTASSIUM SERUM 4.5 MMOL/L (3.5-5.1)
[2024-02-20 07:49] VITALS: BP 132/74; TEMP 97.4; O2SAT 93
[2024-02-20 10:37] LABS: DIGOXIN LEVEL 1.5 NG/ML (0.8-2.0)
[2024-02-20] MEDS: atenoloL 50 MG TAB PO SCH (10:39)
[2024-02-20 11:59] VITALS: BP 152/70; TEMP 98.2; O2SAT 91
[2024-02-20] MEDS: LEVEMIR (INSULIN DETEMIR) 1 UNITS/0.01ML SC SCH (13:32)
[2024-02-20] MEDS: dilTIAZem 30 MG TAB PO SCH (13:33)
[2024-02-20] MEDS: NS 1,000 ML IV SCH (13:42)
[2024-02-20 16:09] VITALS: BP 146/84; TEMP 98.3; O2SAT 94
[2024-02-20 18:14] VITALS: BP 129/58; O2SAT 78
[2024-02-20] MEDS: INSULIN LISPRO (NovoLOG) PER UNIT SC SCH (18:26)
[2024-02-20 19:41] VITALS: BP 123/54; TEMP 97.6; O2SAT 95
[2024-02-21] VITALS (24 sets, daily range): BP systolic 119–160; BP diastolic 56–79; TEMP 97–98.2; O2SAT 83–100
[2024-02-21] MEDS: dilTIAZem 30 MG TAB PO SCH
[2024-02-21 06:10] LABS: BASO % 0.1 % (0.0-1.0); HEMATOCRIT 40.9 % (36.0-47.0); LYMPH # 0.7 10^3/uL (1.5-5.0); LYMPH % 3.7 % (24.0-44.0); MEAN CORPUSCULAR HEMOGLOBIN 27.5 pg (27.0-33.0); MEAN CORPUSCULAR HGB CONC 31.8 g/dl (32.0-36.5); MEAN CORPUSCULAR VOLUME 86.5 fl (80.0-96.0); MONO # 0.7 10^3/uL (0.0-0.8); MONO % 3.7 % (2.0-8.0); NEUTROPHILS # 16.4 10^3/uL (1.5-8.5); NEUTROPHILS % 91.8 % (36.0-66.0); PLATELET COUNT, AUTOMATED 175 10^3/uL (150-450); RED BLOOD COUNT 4.73 10^6/uL (4.00-5.40); WHITE BLOOD COUNT 17.9 10^3/uL (4.0-10.0)
[2024-02-21 06:48] LABS: CALCIUM LEVEL 8.5 MG/DL (8.3-10.6); CREATININE FOR GFR 1.21 MG/DL (0.55-1.30); GLOMERULAR FILTRATION RATE 45.2 (>32); MAGNESIUM LEVEL 2.2 MG/DL (1.8-2.4); POTASSIUM SERUM 4.6 MMOL/L (3.5-5.1)
[2024-02-21] MEDS ORDERED: atenoloL 50 MG TAB PO SCH (09:00)
[2024-02-21] MEDS: predniSONE 20 MG TAB PO SCH (09:11)
[2024-02-21] MEDS: atenoloL 50 MG TAB PO SCH (09:12)
[2024-02-21] MEDS: ONDANSETRON 4MG 2ML VIAL IV ONE (14:05)
[2024-02-22] VITALS (17 sets, daily range): BP systolic 145–174; BP diastolic 60–76; TEMP 97.2–97.3; O2SAT 88–100
[2024-02-22] MEDS: ONDANSETRON 4MG 2ML VIAL IV PRN (06:38)
[2024-02-22] MEDS: MOM 30ML SUSPENSION UDC PO PRN (10:40)
[2024-02-22 11:39] LABS: BASO % 0.1 % (0.0-1.0); HEMATOCRIT 41.8 % (36.0-47.0); LYMPH # 0.4 10^3/uL (1.5-5.0); LYMPH % 1.6 % (24.0-44.0); MEAN CORPUSCULAR HEMOGLOBIN 27.6 pg (27.0-33.0); MEAN CORPUSCULAR HGB CONC 31.1 g/dl (32.0-36.5); MEAN CORPUSCULAR VOLUME 88.7 fl (80.0-96.0); MONO % 3.5 % (2.0-8.0); NEUTROPHILS # 25.7 10^3/uL (1.5-8.5); NEUTROPHILS % 93.9 % (36.0-66.0); PLATELET COUNT, AUTOMATED 147 10^3/uL (150-450); RED BLOOD COUNT 4.71 10^6/uL (4.00-5.40); WHITE BLOOD COUNT 27.4 10^3/uL (4.0-10.0)
[2024-02-22 12:02] LABS: BLOOD UREA NITROGEN 42 MG/DL (9-23); CALCIUM LEVEL 8.9 MG/DL (8.3-10.6); CARBON DIOXIDE LEVEL 31 MMOL/L (20-31); CHLORIDE LEVEL 101 MMOL/L (98-107); CREATININE FOR GFR 1.03 MG/DL (0.55-1.30); GLOMERULAR FILTRATION RATE 54.5 (>32); GLUCOSE, FASTING 224 MG/DL (74-106); MAGNESIUM LEVEL 2.4 MG/DL (1.8-2.4); SODIUM LEVEL 138 MMOL/L (136-145)
[2024-02-22] MEDS ORDERED: SENOKOT S TAB PO PRN (14:20)
[2024-02-22] MEDS ORDERED: MIRALAX *UNIT DOSE* 17GM PACKET PO PRN (14:20)
[2024-02-22] MEDS ORDERED: MOM 30ML SUSPENSION UDC PO PRN (14:20)
[2024-02-22] MEDS ORDERED: BISACODYL 10MG SUPP PR PRN (14:20)
[2024-02-22 14:49] LABS: PROCALCITONIN <0.04 ng/ml
[2024-02-22] MEDS: SPIRONOLACTONE 25 MG TAB PO ONE (15:16)
[2024-02-22] MEDS: BUMETANIDE 1 MG TAB PO ONE ×2 (15:16→18:09)
[2024-02-23] VITALS (16 sets, daily range): BP systolic 132–184; BP diastolic 62–76; TEMP 97–97.6; O2SAT 92–99
[2024-02-23] MEDS: SPIRONOLACTONE 25 MG TAB PO SCH (08:38)
[2024-02-23] MEDS: BUMETANIDE 1 MG TAB PO SCH (09:03)
[2024-02-24 05:30] VITALS: BP 142/78; TEMP 97.2; O2SAT 99
[2024-02-24 09:22] VITALS: BP 128/50
[2024-02-24 11:07] LABS: BASO % 0.1 % (0.0-1.0); EOS # 0.1 10^3/uL (0.0-0.5); EOS % 0.6 % (0.0-3.0); HEMATOCRIT 36.1 % (36.0-47.0); HEMOGLOBIN 11.3 g/dl (12.0-15.5); LYMPH # 0.7 10^3/uL (1.5-5.0); LYMPH % 4.6 % (24.0-44.0); MEAN CORPUSCULAR HEMOGLOBIN 27.4 pg (27.0-33.0); MEAN CORPUSCULAR HGB CONC 31.3 g/dl (32.0-36.5); MEAN CORPUSCULAR VOLUME 87.6 fl (80.0-96.0); MONO # 0.7 10^3/uL (0.0-0.8); MONO % 4.5 % (2.0-8.0); NEUTROPHILS # 12.9 10^3/uL (1.5-8.5); NEUTROPHILS % 89.7 % (36.0-66.0); PLATELET COUNT, AUTOMATED 125 10^3/uL (150-450); RED BLOOD COUNT 4.12 10^6/uL (4.00-5.40); WHITE BLOOD COUNT 14.4 10^3/uL (4.0-10.0)
[2024-02-24 11:59] LABS: BLOOD UREA NITROGEN 38 MG/DL (9-23); CALCIUM LEVEL 8.4 MG/DL (8.3-10.6); CARBON DIOXIDE LEVEL 31 MMOL/L (20-31); CHLORIDE LEVEL 101 MMOL/L (98-107); CREATININE FOR GFR 0.93 MG/DL (0.55-1.30); GLOMERULAR FILTRATION RATE > 60.0 (>32); GLUCOSE, FASTING 394 MG/DL (74-106); MAGNESIUM LEVEL 2.1 MG/DL (1.8-2.4); POTASSIUM SERUM 4.1 MMOL/L (3.5-5.1); SODIUM LEVEL 136 MMOL/L (136-145)
[2024-02-24 14:00] VITALS: TEMP 97.6; O2SAT 97
== END 2024-02-24 14:39 | DRG 872 ==
LOC: EDBD 09:21 → M ED 09:21 → M ED INP 12:47 → M PCU 18:15 → M MS4PR 02-23 21:20
PROVIDERS: ADMIT General Practice; ATTEND Hospitalist
DX: A41.89 Other specified sepsis (principal); E87.20 Acidosis, unspecified; I50.32 Chronic diastolic (congestive) heart failure; I13.0 Hypertensive heart and chronic kidney disease with heart failure and stage 1 through stage 4 chronic kidney disease, or unspecified chronic kidney disease; J44.1 Chronic obstructive pulmonary disease with (acute) exacerbation; J44.0 Chronic obstructive pulmonary disease with (acute) lower respiratory infection; J96.11 Chronic respiratory failure with hypoxia; I48.20 Chronic atrial fibrillation, unspecified; J11.1 Influenza due to unidentified influenza virus with other respiratory manifestations; I27.20 Pulmonary hypertension, unspecified; E11.22 Type 2 diabetes mellitus with diabetic chronic kidney disease; I16.0 Hypertensive urgency; N18.30 Chronic kidney disease, stage 3 unspecified; I25.10 Atherosclerotic heart disease of native coronary artery without angina pectoris; K59.09 Other constipation; R29.6 Repeated falls; E78.5 Hyperlipidemia, unspecified; K21.9 Gastro-esophageal reflux disease without esophagitis; I25.2 Old myocardial infarction; Z87.891 Personal history of nicotine dependence; Z99.81 Dependence on supplemental oxygen; Z95.2 Presence of prosthetic heart valve; Z79.01 Long term (current) use of anticoagulants; Z79.4 Long term (current) use of insulin; Z79.52 Long term (current) use of systemic steroids; Z79.899 Other long term (current) drug therapy

== ENCOUNTER → 2024-03-11 | Outpatient (REF) | payer MEDICARE, OTHER ==
[~2024-03-11] MED LIST changes: +ALBU10.7 INH; +GUAI600T54 PO; +METO100T5 PO; +ROSU5TAB40 PO; -ROSU5TAB5 PO
[2024-03-11 07:48] LABS: HEMATOCRIT 33.7 % (36.0-47.0); HEMOGLOBIN 10.4 g/dl (12.0-15.5); MEAN CORPUSCULAR HEMOGLOBIN 27.2 pg (27.0-33.0); MEAN CORPUSCULAR HGB CONC 30.9 g/dl (32.0-36.5); MEAN CORPUSCULAR VOLUME 88.2 fl (80.0-96.0); PLATELET COUNT, AUTOMATED 185 10^3/uL (150-450); RED BLOOD COUNT 3.82 10^6/uL (4.00-5.40); WHITE BLOOD COUNT 6.9 10^3/uL (4.0-10.0)
[2024-03-11 08:08] LABS: CREATININE FOR GFR 1.09 MG/DL (0.55-1.30); POTASSIUM SERUM 4.4 MMOL/L (3.5-5.1)
== END ==
PROVIDERS: ATTEND Internal Medicine
DX: N18.31 Chronic kidney disease, stage 3a (principal); J44.1 Chronic obstructive pulmonary disease with (acute) exacerbation; E11.9 Type 2 diabetes mellitus without complications

== ENCOUNTER → 2024-03-14 | Outpatient (CLI) | payer MEDICARE, OTHER | LOC: M PLAIMG 10:13 | PROVIDERS: ATTEND Internal Medicine | DX: J44.1 Chronic obstructive pulmonary disease with (acute) exacerbation (principal) ==

== ENCOUNTER 2024-07-02 08:21 | Emergency (ER) | payer MEDICARE, OTHER ==
[2024-07-02] MEDS: IPRATROPIUM 0.5MG/ALBUTEROL 2.5MG INH SOL UD 3ML (DUONEB) NEB ONE (09:27)
[2024-07-02] MEDS: ALBUTEROL SULFATE 2.5MG/0.5ML INH NEB SOLN INH ONE (09:28)
[2024-07-02 09:31] LABS: BASO # 0.1 10^3/uL (0.0-0.2); BASO % 0.3 % (0.0-1.0); EOS # 0.1 10^3/uL (0.0-0.5); EOS % 0.7 % (0.0-3.0); HEMATOCRIT 43.1 % (36.0-47.0); HEMOGLOBIN 13.6 g/dl (12.0-15.5); LYMPH # 1.1 10^3/uL (1.5-5.0); MEAN CORPUSCULAR HEMOGLOBIN 27.9 pg (27.0-33.0); MEAN CORPUSCULAR HGB CONC 31.6 g/dl (32.0-36.5); MEAN CORPUSCULAR VOLUME 88.3 fl (80.0-96.0); MONO # 0.7 10^3/uL (0.0-0.8); NEUTROPHILS # 15.8 10^3/uL (1.5-8.5); NEUTROPHILS % 88.5 % (36.0-66.0); PLATELET COUNT, AUTOMATED 223 10^3/uL (150-450); RED BLOOD COUNT 4.88 10^6/uL (4.00-5.40); WHITE BLOOD COUNT 17.8 10^3/uL (4.0-10.0)
[2024-07-02 09:40] LABS: ALBUMIN 3.9 G/DL (3.2-5.2); BILIRUBIN,DIRECT 0.2 MG/DL (<0.4); BILIRUBIN,TOTAL 0.6 MG/DL (0.3-1.2); CALCIUM LEVEL 9.4 MG/DL (8.3-10.6); CK-MB VALUE MASS 1.9 NG/ML (<3.6); CREATININE FOR GFR 1.09 MG/DL (0.55-1.30); MB/CK RELATIVE INDEX 1.37 (< OR =4); POTASSIUM SERUM 5.2 MMOL/L (3.5-5.1); TOTAL PROTEIN 7.4 G/DL (5.7-8.2)
[2024-07-02 09:42] LABS: INR 1.21; PARTIAL THROMBOPLASTIN TIME 27.8 SECONDS (24.8-34.2)
[2024-07-02] MEDS: LOSARTAN 25 MG TAB PO ONE (10:15)
[2024-07-02] MEDS: METOPROLOL TARTRATE 100MG TAB PO ONE (10:20)
[2024-07-02] MEDS: methylPREDNISolone 125MG 2ML VIAL IV ONE (10:31)
[2024-07-02] MEDS: fentaNYL 100 MCG/2 ML INJECTION IV PRN (10:33)
[2024-07-02] MEDS ORDERED: LANTINJ4 SC (10:48)
[2024-07-02] MEDS ORDERED: HUMA100I5 SC (10:48)
[2024-07-02 10:55] VITALS: O2SAT 99
[2024-07-02] MEDS ORDERED: TRUL0.5I SC (10:56)
[2024-07-02] MEDS ORDERED: PRED25TA PO (10:56)
[2024-07-02] MEDS ORDERED: DULA3PEN SQ (11:17)
[2024-07-02] MEDS ORDERED: SENN1TAB85 PO (11:17)
[2024-07-02] MEDS ORDERED: MOM30SS PO (11:17)
[2024-07-02] MEDS ORDERED: VENTAER INH (11:17)
[2024-07-02] MEDS ORDERED: SENN-23 PO (11:17)
[2024-07-02] MEDS ORDERED: LOPE1CAP5 PO ×2 (11:17)
[2024-07-02] MEDS ORDERED: GUAI5EL PO (11:17)
[2024-07-02] MEDS ORDERED: D-10TAB2 PO (11:17)
[2024-07-02] MEDS ORDERED: IPRA0.00 INH (11:17)
[2024-07-02] MEDS ORDERED: APAP325T4 PO (11:17)
[2024-07-02] MEDS ORDERED: HOME MED LIST COMPLETE! XX SCH (11:20)
[2024-07-02 11:31] VITALS: BP 137/64; TEMP 97.6
== END 2024-07-02 11:34 | disposition short-term general hospital (02) ==
LOC: M ED 08:21 → EDBD 08:21 → M ED 11:34
DX: S12.100A Unspecified displaced fracture of second cervical vertebra, initial encounter for closed fracture (principal); S06.5X0A Traumatic subdural hemorrhage without loss of consciousness, initial encounter; Y92.019 Unspecified place in single-family (private) house as the place of occurrence of the external cause; Y93.9 Activity, unspecified; Y99.9 Unspecified external cause status; W19.XXXA Unspecified fall, initial encounter; I44.0 Atrioventricular block, first degree; I48.91 Unspecified atrial fibrillation; I50.22 Chronic systolic (congestive) heart failure; J44.9 Chronic obstructive pulmonary disease, unspecified; K21.9 Gastro-esophageal reflux disease without esophagitis; Z87.891 Personal history of nicotine dependence; Z79.01 Long term (current) use of anticoagulants; Z79.1 Long term (current) use of non-steroidal anti-inflammatories (NSAID); Z79.51 Long term (current) use of inhaled steroids; Z79.4 Long term (current) use of insulin; Z79.899 Other long term (current) drug therapy
CPT/HCPCS: 70450; 70486; 71045; 72125; 72170; 73030; 73080; 73090; 73110; 73130; 73502; 73552; 73564; 80047; 80048; 80076; 80162; 82150; 82550; 82553; 83690; 83880; 84484; 85025; 85610; 85730; 86850; 86900; 86901; 87486; 87581; 87633; 87798; 93005; 93041; 94760; 96374; 96375; 99285; J2919; J3010

== ENCOUNTER → 2024-07-15 | Outpatient (REF) ==
[~2024-07-15] MED LIST changes: +APAP325T4 PO; +D-10TAB2 PO; +DULA3PEN SQ; +GUAI5EL PO; +IPRA0.00 INH; +PRED25TA PO; +SENN-23 PO; +SENN1TAB85 PO; +TRUL0.5I SC; +VENTAER INH
[2024-07-15 07:08] LABS: HEMATOCRIT 31.6 % (36.0-47.0); HEMOGLOBIN 9.3 g/dl (12.0-15.5); MEAN CORPUSCULAR HEMOGLOBIN 26.9 pg (27.0-33.0); MEAN CORPUSCULAR HGB CONC 29.4 g/dl (32.0-36.5); MEAN CORPUSCULAR VOLUME 91.3 fl (80.0-96.0); PLATELET COUNT, AUTOMATED 231 10^3/uL (150-450); RED BLOOD COUNT 3.46 10^6/uL (4.00-5.40); WHITE BLOOD COUNT 12.6 10^3/uL (4.0-10.0)
[2024-07-15 07:33] LABS: BLOOD UREA NITROGEN 12 MG/DL (9-23); CALCIUM LEVEL 9.1 MG/DL (8.3-10.6); CARBON DIOXIDE LEVEL 33 MMOL/L (20-31); CHLORIDE LEVEL 104 MMOL/L (98-107); CREATININE FOR GFR 0.78 MG/DL (0.55-1.30); GLOMERULAR FILTRATION RATE > 60.0 (>32); GLUCOSE, FASTING 69 MG/DL (74-106); POTASSIUM SERUM 3.4 MMOL/L (3.5-5.1); SODIUM LEVEL 142 MMOL/L (136-145)
== END ==
PROVIDERS: ATTEND Physician Assistant
DX: E11.9 Type 2 diabetes mellitus without complications (principal)

== ENCOUNTER → 2024-07-20 | Outpatient (REF) ==
[2024-07-20 11:52] LABS: HEMATOCRIT 29.9 % (36.0-47.0); HEMOGLOBIN 8.9 g/dl (12.0-15.5); MEAN CORPUSCULAR HEMOGLOBIN 26.9 pg (27.0-33.0); MEAN CORPUSCULAR HGB CONC 29.8 g/dl (32.0-36.5); MEAN CORPUSCULAR VOLUME 90.3 fl (80.0-96.0); PLATELET COUNT, AUTOMATED 247 10^3/uL (150-450); RED BLOOD COUNT 3.31 10^6/uL (4.00-5.40); WHITE BLOOD COUNT 8.9 10^3/uL (4.0-10.0)
[2024-07-20 12:17] LABS: BLOOD UREA NITROGEN 14 MG/DL (9-23); CALCIUM LEVEL 8.9 MG/DL (8.3-10.6); CARBON DIOXIDE LEVEL 33 MMOL/L (20-31); CHLORIDE LEVEL 102 MMOL/L (98-107); CREATININE FOR GFR 0.85 MG/DL (0.55-1.30); GLOMERULAR FILTRATION RATE > 60.0 (>32); GLUCOSE, FASTING 193 MG/DL (74-106); POTASSIUM SERUM 4.1 MMOL/L (3.5-5.1); SODIUM LEVEL 140 MMOL/L (136-145)
== END ==
PROVIDERS: ATTEND Physician Assistant
DX: E11.9 Type 2 diabetes mellitus without complications (principal)

== ENCOUNTER → 2024-07-25 | Outpatient (REF) | PROVIDERS: ATTEND Physician Assistant | DX: I50.9 Heart failure, unspecified (principal) ==

== ENCOUNTER → 2024-07-27 | Outpatient (REF) ==
[2024-07-27 09:46] LABS: HEMOGLOBIN 9.5 g/dl (12.0-15.5); MEAN CORPUSCULAR HEMOGLOBIN 26.9 pg (27.0-33.0); MEAN CORPUSCULAR HGB CONC 29.7 g/dl (32.0-36.5); MEAN CORPUSCULAR VOLUME 90.7 fl (80.0-96.0); PLATELET COUNT, AUTOMATED 340 10^3/uL (150-450); RED BLOOD COUNT 3.53 10^6/uL (4.00-5.40); WHITE BLOOD COUNT 12.8 10^3/uL (4.0-10.0)
[2024-07-27 10:08] LABS: HEMOGLOBIN A1c 8.7 % (4.0-6.0)
[2024-07-27 10:22] LABS: BLOOD UREA NITROGEN 14 MG/DL (9-23); CALCIUM LEVEL 9.6 MG/DL (8.3-10.6); CARBON DIOXIDE LEVEL 36 MMOL/L (20-31); CHLORIDE LEVEL 101 MMOL/L (98-107); CREATININE FOR GFR 0.72 MG/DL (0.55-1.30); GLOMERULAR FILTRATION RATE > 60.0 (>32); GLUCOSE, FASTING 164 MG/DL (74-106); POTASSIUM SERUM 4.2 MMOL/L (3.5-5.1); SODIUM LEVEL 142 MMOL/L (136-145)
== END ==
PROVIDERS: ATTEND Physician Assistant
DX: E11.9 Type 2 diabetes mellitus without complications (principal)

== ENCOUNTER → 2024-08-01 | Outpatient (REF) ==
[2024-08-01 09:29] LABS: HEMATOCRIT 31.6 % (36.0-47.0); HEMOGLOBIN 9.4 g/dl (12.0-15.5); MEAN CORPUSCULAR HEMOGLOBIN 26.8 pg (27.0-33.0); MEAN CORPUSCULAR HGB CONC 29.7 g/dl (32.0-36.5); PLATELET COUNT, AUTOMATED 365 10^3/uL (150-450); RED BLOOD COUNT 3.51 10^6/uL (4.00-5.40); WHITE BLOOD COUNT 10.3 10^3/uL (4.0-10.0)
== END ==
PROVIDERS: ATTEND Physician Assistant
DX: I50.9 Heart failure, unspecified (principal)

== ENCOUNTER 2024-08-30 11:56 | Inpatient (IN) | payer MEDICARE, MEDICAID ==
[~2024-08-30] VITALS: Ht 167.6 cm; Wt 74.0 kg
[2024-08-30] MEDS ORDERED: LANTINJ4 SC ×2 (12:39)
[2024-08-30] MEDS ORDERED: METF500T13 PO (12:39)
[2024-08-30] MEDS ORDERED: D31000CA4 PO (12:39)
[2024-08-30] MEDS ORDERED: LASI20TA3 PO (12:39)
[2024-08-30 13:27] LABS: BASO # 0.1 10^3/uL (0.0-0.2); BASO % 0.4 % (0.0-1.0); EOS # 0.1 10^3/uL (0.0-0.5); EOS % 0.7 % (0.0-3.0); HEMATOCRIT 34.2 % (36.0-47.0); HEMOGLOBIN 9.7 g/dl (12.0-15.5); LYMPH # 0.7 10^3/uL (1.5-5.0); LYMPH % 5.2 % (24.0-44.0); MEAN CORPUSCULAR HEMOGLOBIN 25.5 pg (27.0-33.0); MEAN CORPUSCULAR HGB CONC 28.4 g/dl (32.0-36.5); MONO # 0.8 10^3/uL (0.0-0.8); MONO % 6.3 % (2.0-8.0); NEUTROPHILS % 87.1 % (36.0-66.0); PLATELET COUNT, AUTOMATED 356 10^3/uL (150-450); WHITE BLOOD COUNT 12.6 10^3/uL (4.0-10.0)
[2024-08-30 13:49] LABS: LIPASE 28 U/L (12-53)
[2024-08-30 13:51] LABS: ALBUMIN 3.7 G/DL (3.2-5.2); ALKALINE PHOSPHATASE 82 U/L (46-116); ALT/SGPT 18 U/L (7.0-40); AST/SGOT 25 U/L (<34); BILIRUBIN,DIRECT 0.1 MG/DL (<0.4); BILIRUBIN,TOTAL 0.4 MG/DL (0.3-1.2); BLOOD UREA NITROGEN 45 MG/DL (9-23); CARBON DIOXIDE LEVEL 37 MMOL/L (20-31); CHLORIDE LEVEL 102 MMOL/L (98-107); CREATININE FOR GFR 0.94 MG/DL (0.55-1.30); GLOMERULAR FILTRATION RATE > 60.0 (>32); GLUCOSE, FASTING 49 MG/DL (74-106); POTASSIUM SERUM 5.3 MMOL/L (3.5-5.1); SODIUM LEVEL 140 MMOL/L (136-145); TOTAL PROTEIN 7.6 G/DL (5.7-8.2)
[2024-08-30] MEDS: FUROSEMIDE 40MG/4ML VIAL IV ONE (13:52)
[2024-08-30] MEDS ORDERED: ISOVUE-370 76% 100ML VIAL As Ordered ONE (15:11)
[2024-08-30] MEDS ORDERED: HEPARIN SOD (PORCINE) 5000UNITS/ML 1ML VIAL/SYRINGE IV ONE (15:15)
[2024-08-30] MEDS ORDERED: HEPARIN DRIP 25,000 UNITS in IV 1 EA IV SCH (16:00)
[2024-08-30] MEDS ORDERED: HEPARIN SOD (PORCINE) 5000UNITS/ML 1ML VIAL/SYRINGE IV PRN (16:00)
[2024-08-30] MEDS ORDERED: MELA5TAB7 PO (16:09)
[2024-08-30] MEDS ORDERED: HOME MED LIST COMPLETE! XX SCH (16:10)
[2024-08-30] MEDS ORDERED: DEXTROSE 50% 50ML SYRINGE As Ordered ONE (16:36)
[2024-08-30] MEDS: DEXTROSE 50% 50ML SYRINGE IV STA (16:40)
[2024-08-30] MEDS ORDERED: GLUCOSE 4 GM CHEW PO PRN (16:50)
[2024-08-30] MEDS ORDERED: MAALOX 30 ML SUSP *UDC PO PRN (16:50)
[2024-08-30] MEDS ORDERED: GLUCAGON INJ 1MG VIAL SC PRN (16:50)
[2024-08-30] MEDS ORDERED: MOM 30ML SUSPENSION UDC PO PRN (16:50)
[2024-08-30] MEDS ORDERED: CETIRIZINE (ZyrTEC) 10 MG TAB PO PRN (17:20)
[2024-08-30] MEDS ORDERED: guaiFENesin SYRUP 200MG 10ML UDC PO PRN (17:20)
[2024-08-30] MEDS: INSULIN LISPRO (NovoLOG) PER UNIT SC SCH ×2 (17:29→21:00)
[2024-08-30] MEDS ORDERED: IPRATROPIUM 0.5MG/ALBUTEROL 2.5MG INH SOL UD 3ML (DUONEB) NEB PRN (17:30)
[2024-08-30] MEDS ORDERED: PILL CUTTER 1 EACH XX PRN (17:40)
[2024-08-30 18:24] LABS: ABG HCO3 34.6 MMOL/L (22.0-26.0); ABG O2 SATURATION 97.8 % (95.0-99.0); ABG PARTIAL PRESSURE O2 110.5 mmHg (75.0-100.0); ABG STANDARD HCO3 29.9 MMOL/L. (22.0-26.0); ABG TOTAL CO2 36.9 MMOL/L (23.0-31.0); ABG pH (ARTERIAL) 7.276 UNITS (7.350-7.450)
[2024-08-30] MEDS: cefTRIAXone SOD 1 GM in DEXTROSE 5% (D5W) ADV/MINI-BAG 50 ML IV SCH (18:49)
[2024-08-30 19:22] LABS: PROCALCITONIN 0.06 ng/ml
[2024-08-30 19:29] LABS: MAGNESIUM LEVEL 2.1 MG/DL (1.8-2.4); PHOSPHORUS LEVEL 4.5 MG/DL (2.4-5.1)
[2024-08-30 19:32] LABS: THYROID STIMULATING HORMONE 0.636 uIU/ML (0.55-4.78)
[2024-08-30 19:33] LABS: FREE T4 1.55 NG/DL (0.89-1.76)
[2024-08-30] MEDS: HYDROCORTISONE 100MG/2ML VIAL IV STA (19:36)
[2024-08-30 20:00] VITALS: BP 137/63; TEMP 95.9; O2SAT 95
[2024-08-30 20:40] LABS: VENOUS HCO3 35.1 MMOL/L (23.0-27.0); VENOUS O2 SATURATION 80.2 % (60.0-80.0); VENOUS PARTIAL PRESSURE O2 47.2 mmHg (30.0-50.0); VENOUS STANDARD HCO3 30.5 MMOL/L; VENOUS TOTAL CO2 37.4 MMOL/L (24.0-28.0)
[2024-08-30] MEDS: IPRATROPIUM 0.5MG/ALBUTEROL 2.5MG INH SOL UD 3ML (DUONEB) NEB SCH (20:47)
[2024-08-30] MEDS: DOXYCYCLINE HYCLATE 100 MG in D5W MINI-BAG PLUS 100 ML IV SCH (20:56)
[2024-08-30] MEDS: METOPROLOL TART 50 MG TAB PO ONE (20:56)
[2024-08-30] MEDS: SENOKOT S TAB PO SCH (20:57)
[2024-08-30] MEDS: DOCUSATE SODIUM 100MG CAPSULE PO SCH (20:57)
[2024-08-30 21:00] VITALS: BP 154/73; TEMP 97.7; O2SAT 98
[2024-08-30] MEDS ORDERED: METOPROLOL TART 50 MG TAB PO SCH (21:00)
[2024-08-30 22:00] VITALS: BP 150/69; TEMP 98.1; O2SAT 100
[2024-08-30 23:00] VITALS: BP 102/53; TEMP 98.2; O2SAT 91
[2024-08-31] VITALS (17 sets, daily range): BP systolic 117–168; BP diastolic 61–109; TEMP 98.2–98.7; O2SAT 88–100
[2024-08-31] MEDS: HYDROCORTISONE 100MG/2ML VIAL IV SCH (02:36)
[2024-08-31 04:46] LABS: BASO % 0.3 % (0.0-1.0); HEMOGLOBIN 9.1 g/dl (12.0-15.5); LYMPH # 0.3 10^3/uL (1.5-5.0); LYMPH % 2.3 % (24.0-44.0); MEAN CORPUSCULAR HEMOGLOBIN 25.1 pg (27.0-33.0); MEAN CORPUSCULAR HGB CONC 28.4 g/dl (32.0-36.5); MEAN CORPUSCULAR VOLUME 88.2 fl (80.0-96.0); MONO # 0.1 10^3/uL (0.0-0.8); MONO % 1.3 % (2.0-8.0); NEUTROPHILS # 10.7 10^3/uL (1.5-8.5); NEUTROPHILS % 95.8 % (36.0-66.0); PLATELET COUNT, AUTOMATED 334 10^3/uL (150-450); RED BLOOD COUNT 3.63 10^6/uL (4.00-5.40); WHITE BLOOD COUNT 11.1 10^3/uL (4.0-10.0)
[2024-08-31 05:04] LABS: CALCIUM LEVEL 9.8 MG/DL (8.3-10.6); GLOMERULAR FILTRATION RATE 56.2 (>32); POTASSIUM SERUM 5.1 MMOL/L (3.5-5.1)
[2024-08-31] MEDS ORDERED: HEPARIN SOD (PORCINE) 5000UNITS/ML 1ML VIAL/SYRINGE SC SCH (06:00)
[2024-08-31] MEDS: FUROSEMIDE 40MG/4ML VIAL IV SCH ×2 (08:09→17:50)
[2024-08-31] MEDS: ROSUVASTATIN 10 MG TAB (CRESTOR) PO SCH (08:10)
[2024-08-31] MEDS: VITAMIN D 1,000 INTERNATIONAL UNITS TABLET PO SCH (08:11)
[2024-08-31] MEDS: METOPROLOL TART 50 MG TAB PO SCH (10:11)
[2024-08-31] MEDS: predniSONE 20 MG TAB PO SCH (10:12)
[2024-08-31 17:42] LABS: SOURCE, BODY FLUID ALBUMIN PLEURAL
[2024-08-31 17:48] LABS: AMYLASE, BODY FLUID < 20 U/L (NOT ESTABLISHED); SOURCE, BODY FLUID AMYLASE PLEURAL; SOURCE, BODY FLUID GLUCOSE PLEURAL; SOURCE, BODY FLUID TRIG PLEURAL; TRIGLYCERIDE, BODY FLUID 14.99999 MG/DL (NOT ESTABLISHED)
[2024-08-31 17:49] LABS: LDH, BODY FLUID 55 U/L (NOT ESTABLISHED); SOURCE, BODY FLUID LDH PLEURAL
[2024-08-31 17:50] LABS: CHOLESTEROL, BODY FLUID < 25 MG/DL (NOT ESTABLISHED); SOURCE, BODY FLUID CHOL PLEURAL
[2024-08-31 17:54] LABS: APPEARANCE, BODY FLUID CLOUDY (CLEAR); PLEURAL FL COLOR YELLOW (COLORLESS); SOURCE, BODY FLUID PLEURAL
[2024-08-31 19:09] LABS: SOURCE, BODY FLUID TOT PROTEIN PLEURAL; TOTAL PROTEIN, BODY FLUID 2.2 G/DL (NOT ESTABLISHED)
[2024-08-31] MEDS: METOPROLOL 5 MG/5 ML VIAL IV PRN (20:05)
[2024-08-31] MEDS: LEVEMIR (INSULIN DETEMIR) 1 UNITS/0.01ML SC SCH (21:03)
[2024-09-01] VITALS (8 sets, daily range): BP systolic 121–164; BP diastolic 54–73; TEMP 97.6–98.9; O2SAT 89–99
[2024-09-01 05:42] LABS: BASO # 0.1 10^3/uL (0.0-0.2); BASO % 0.4 % (0.0-1.0); EOS # 0.1 10^3/uL (0.0-0.5); EOS % 0.6 % (0.0-3.0); HEMATOCRIT 31.5 % (36.0-47.0); HEMOGLOBIN 9.6 g/dl (12.0-15.5); LYMPH % 7.2 % (24.0-44.0); MEAN CORPUSCULAR HEMOGLOBIN 25.9 pg (27.0-33.0); MEAN CORPUSCULAR HGB CONC 30.5 g/dl (32.0-36.5); MEAN CORPUSCULAR VOLUME 84.9 fl (80.0-96.0); MONO # 1.2 10^3/uL (0.0-0.8); MONO % 8.8 % (2.0-8.0); NEUTROPHILS # 11.2 10^3/uL (1.5-8.5); NEUTROPHILS % 82.6 % (36.0-66.0); PLATELET COUNT, AUTOMATED 305 10^3/uL (150-450); RED BLOOD COUNT 3.71 10^6/uL (4.00-5.40); WHITE BLOOD COUNT 13.6 10^3/uL (4.0-10.0)
[2024-09-01 06:06] LABS: CALCIUM LEVEL 9.8 MG/DL (8.3-10.6); CREATININE FOR GFR 1.45 MG/DL (0.55-1.30); GLOMERULAR FILTRATION RATE 36.6 (>32); MAGNESIUM LEVEL 1.9 MG/DL (1.8-2.4); POTASSIUM SERUM 4.4 MMOL/L (3.5-5.1)
[2024-09-01] MEDS: LEVEMIR (INSULIN DETEMIR) 1 UNITS/0.01ML SC SCH (08:04)
[2024-09-01] MEDS: METOPROLOL TART 50 MG TAB PO SCH (08:09)
[2024-09-01] MEDS: FUROSEMIDE injection 100 MG, VIAL 2 BAG 13MM ADAPTER 1 EACH in D5W 100 ML IV SCH (10:01)
[2024-09-01] MEDS: DIGOXIN INJ 0.5 MG/2 ML AMP IV ONE ×3 (10:04→23:03)
[2024-09-02 04:18] VITALS: BP 148/80; TEMP 97.7; O2SAT 97
[2024-09-02 07:27] VITALS: BP 160/65; TEMP 97.2; O2SAT 99
[2024-09-02 09:21] LABS: BASO % 0.3 % (0.0-1.0); EOS # 0.2 10^3/uL (0.0-0.5); EOS % 1.5 % (0.0-3.0); HEMATOCRIT 30.9 % (36.0-47.0); HEMOGLOBIN 9.3 g/dl (12.0-15.5); LYMPH # 0.7 10^3/uL (1.5-5.0); LYMPH % 5.3 % (24.0-44.0); MEAN CORPUSCULAR HEMOGLOBIN 25.8 pg (27.0-33.0); MEAN CORPUSCULAR HGB CONC 30.1 g/dl (32.0-36.5); MEAN CORPUSCULAR VOLUME 85.8 fl (80.0-96.0); MONO # 1.2 10^3/uL (0.0-0.8); NEUTROPHILS # 10.9 10^3/uL (1.5-8.5); NEUTROPHILS % 83.5 % (36.0-66.0); PLATELET COUNT, AUTOMATED 321 10^3/uL (150-450); WHITE BLOOD COUNT 13.1 10^3/uL (4.0-10.0)
[2024-09-02 09:40] LABS: CALCIUM LEVEL 9.1 MG/DL (8.3-10.6); CREATININE FOR GFR 2.02 MG/DL (0.55-1.30); PERCENT SATURATION 9.5 % (13.2-45.0); POTASSIUM SERUM 4.9 MMOL/L (3.5-5.1)
[2024-09-02 09:41] LABS: FERRITIN 87.8 NG/ML (7.3-270.7)
[2024-09-02 09:42] LABS: FOLATE 10.9 NG/ML (>5.4)
[2024-09-02] MEDS: ACETAMINOPHEN 325 MG TAB PO PRN (09:57)
[2024-09-02 10:35] LABS: CK-MB VALUE MASS 1.1 NG/ML (<3.6)
[2024-09-02 10:36] LABS: MB/CK RELATIVE INDEX 4.78 (< OR =4)
[2024-09-02 12:03] VITALS: BP 160/77; TEMP 97.2; O2SAT 98
[2024-09-02] MEDS: METOPROLOL TARTRATE 100MG TAB PO SCH (12:12)
[2024-09-02 13:35] LABS: CK-MB VALUE MASS 1.4 NG/ML (<3.6)
[2024-09-02 13:37] LABS: MB/CK RELATIVE INDEX 5.38 (< OR =4)
[2024-09-02] MEDS: dilTIAZem 30 MG TAB PO SCH (13:55)
[2024-09-02 15:58] VITALS: BP 131/79; TEMP 97.1; O2SAT 97
[2024-09-02 19:40] VITALS: BP 156/72; TEMP 97.4; O2SAT 99
[2024-09-02 23:58] VITALS: BP 140/63; TEMP 97; O2SAT 98
[2024-09-03] VITALS (7 sets, daily range): BP systolic 130–149; BP diastolic 60–68; TEMP 97.5–97.8; O2SAT 97–99
[2024-09-03 05:51] LABS: BASO % 0.2 % (0.0-1.0); EOS # 0.1 10^3/uL (0.0-0.5); EOS % 0.8 % (0.0-3.0); HEMATOCRIT 29.3 % (36.0-47.0); HEMOGLOBIN 8.8 g/dl (12.0-15.5); LYMPH # 0.8 10^3/uL (1.5-5.0); LYMPH % 6.5 % (24.0-44.0); MEAN CORPUSCULAR HEMOGLOBIN 25.7 pg (27.0-33.0); MEAN CORPUSCULAR VOLUME 85.7 fl (80.0-96.0); MONO # 1.1 10^3/uL (0.0-0.8); MONO % 8.8 % (2.0-8.0); NEUTROPHILS # 10.7 10^3/uL (1.5-8.5); NEUTROPHILS % 83.2 % (36.0-66.0); PLATELET COUNT, AUTOMATED 283 10^3/uL (150-450); RED BLOOD COUNT 3.42 10^6/uL (4.00-5.40); WHITE BLOOD COUNT 12.8 10^3/uL (4.0-10.0)
[2024-09-03 06:07] LABS: DIGOXIN LEVEL 1.4 NG/ML (0.8-2.0)
[2024-09-03 06:08] LABS: CALCIUM LEVEL 9.1 MG/DL (8.3-10.6); CREATININE FOR GFR 2.11 MG/DL (0.55-1.30); GLOMERULAR FILTRATION RATE 23.8 (>32); MAGNESIUM LEVEL 2.2 MG/DL (1.8-2.4); POTASSIUM SERUM 4.4 MMOL/L (3.5-5.1)
[2024-09-03] MEDS: LEVEMIR (INSULIN DETEMIR) 1 UNITS/0.01ML SC SCH (21:00)
[2024-09-04] VITALS (7 sets, daily range): BP systolic 122–156; BP diastolic 55–68; TEMP 97.2–98; O2SAT 94–99
[2024-09-04 05:37] LABS: BASO % 0.2 % (0.0-1.0); EOS # 0.1 10^3/uL (0.0-0.5); EOS % 0.7 % (0.0-3.0); HEMATOCRIT 27.6 % (36.0-47.0); HEMOGLOBIN 8.4 g/dl (12.0-15.5); LYMPH # 0.8 10^3/uL (1.5-5.0); LYMPH % 6.4 % (24.0-44.0); MEAN CORPUSCULAR HEMOGLOBIN 25.8 pg (27.0-33.0); MEAN CORPUSCULAR HGB CONC 30.4 g/dl (32.0-36.5); MEAN CORPUSCULAR VOLUME 84.9 fl (80.0-96.0); MONO # 0.9 10^3/uL (0.0-0.8); MONO % 7.1 % (2.0-8.0); NEUTROPHILS # 10.7 10^3/uL (1.5-8.5); NEUTROPHILS % 85.2 % (36.0-66.0); PLATELET COUNT, AUTOMATED 284 10^3/uL (150-450); RED BLOOD COUNT 3.25 10^6/uL (4.00-5.40); WHITE BLOOD COUNT 12.6 10^3/uL (4.0-10.0)
[2024-09-04 06:00] LABS: CALCIUM LEVEL 9.1 MG/DL (8.3-10.6); CREATININE FOR GFR 1.97 MG/DL (0.55-1.30); GLOMERULAR FILTRATION RATE 25.7 (>32); MAGNESIUM LEVEL 2.2 MG/DL (1.8-2.4); POTASSIUM SERUM 4.3 MMOL/L (3.5-5.1)
[2024-09-04] MEDS: DIGOXIN 0.125 MG TAB PO SCH (10:29)
[2024-09-04] MEDS: LEVEMIR (INSULIN DETEMIR) 1 UNITS/0.01ML SC SCH (20:28)
[2024-09-05 04:17] VITALS: BP 154/69; TEMP 97; O2SAT 93
[2024-09-05 07:24] VITALS: BP 145/64; TEMP 97.6; O2SAT 99
[2024-09-05 10:59] LABS: BASO % 0.1 % (0.0-1.0); EOS # 0.1 10^3/uL (0.0-0.5); EOS % 0.5 % (0.0-3.0); HEMATOCRIT 29.6 % (36.0-47.0); LYMPH # 0.4 10^3/uL (1.5-5.0); MEAN CORPUSCULAR HEMOGLOBIN 25.7 pg (27.0-33.0); MEAN CORPUSCULAR HGB CONC 30.4 g/dl (32.0-36.5); MEAN CORPUSCULAR VOLUME 84.6 fl (80.0-96.0); MONO # 0.6 10^3/uL (0.0-0.8); MONO % 4.3 % (2.0-8.0); NEUTROPHILS # 12.5 10^3/uL (1.5-8.5); NEUTROPHILS % 91.7 % (36.0-66.0); PLATELET COUNT, AUTOMATED 311 10^3/uL (150-450); WHITE BLOOD COUNT 13.6 10^3/uL (4.0-10.0)
[2024-09-05 11:28] LABS: CALCIUM LEVEL 9.7 MG/DL (8.3-10.6); CREATININE FOR GFR 1.68 MG/DL (0.55-1.30); GLOMERULAR FILTRATION RATE 30.9 (>32); POTASSIUM SERUM 3.7 MMOL/L (3.5-5.1)
[2024-09-05 12:00] VITALS: BP 178/80; TEMP 97.1; O2SAT 99
[2024-09-05] MEDS: POTASSIUM CHLORIDE 10MEQ SR TABLET PO ONE (12:48)
[2024-09-05 16:00] VITALS: BP 140/63; TEMP 97.7; O2SAT 94
[2024-09-05 20:00] VITALS: BP 139/65; TEMP 97.8; O2SAT 97
[2024-09-05] MEDS: LEVEMIR (INSULIN DETEMIR) 1 UNITS/0.01ML SC SCH (20:28)
[2024-09-06] VITALS (7 sets, daily range): BP systolic 126–154; BP diastolic 63–76; TEMP 96.4–98.1; O2SAT 92–99
[2024-09-06 06:42] LABS: EOS # 0.1 10^3/uL (0.0-0.5); EOS % 0.7 % (0.0-3.0); HEMATOCRIT 30.5 % (36.0-47.0); HEMOGLOBIN 9.2 g/dl (12.0-15.5); LYMPH # 0.9 10^3/uL (1.5-5.0); LYMPH % 7.1 % (24.0-44.0); MEAN CORPUSCULAR HEMOGLOBIN 25.5 pg (27.0-33.0); MEAN CORPUSCULAR HGB CONC 30.2 g/dl (32.0-36.5); MEAN CORPUSCULAR VOLUME 84.5 fl (80.0-96.0); MONO # 1.1 10^3/uL (0.0-0.8); MONO % 8.8 % (2.0-8.0); NEUTROPHILS # 10.7 10^3/uL (1.5-8.5); NEUTROPHILS % 82.9 % (36.0-66.0); PLATELET COUNT, AUTOMATED 334 10^3/uL (150-450); RED BLOOD COUNT 3.61 10^6/uL (4.00-5.40); WHITE BLOOD COUNT 12.9 10^3/uL (4.0-10.0)
[2024-09-06 07:00] LABS: CALCIUM LEVEL 9.3 MG/DL (8.3-10.6); CREATININE FOR GFR 1.6 MG/DL (0.55-1.30); GLOMERULAR FILTRATION RATE 32.7 (>32); MAGNESIUM LEVEL 2.2 MG/DL (1.8-2.4); POTASSIUM SERUM 3.8 MMOL/L (3.5-5.1)
[2024-09-06] MEDS: predniSONE 10MG TAB PO SCH (09:36)
[2024-09-07 05:23] VITALS: BP 136/63; TEMP 96.9; O2SAT 91
[2024-09-07 07:53] VITALS: BP 135/63; TEMP 96.6; O2SAT 100
[2024-09-07] MEDS: DEXTROSE 50% 50ML SYRINGE IV PRN (08:28)
[2024-09-07] MEDS: DEXTROSE 50% 50ML SYRINGE IV STA (09:23)
[2024-09-07 11:18] LABS: BASO % 0.1 % (0.0-1.0); EOS # 0.1 10^3/uL (0.0-0.5); EOS % 0.4 % (0.0-3.0); HEMOGLOBIN 9.7 g/dl (12.0-15.5); LYMPH # 0.5 10^3/uL (1.5-5.0); LYMPH % 2.8 % (24.0-44.0); MEAN CORPUSCULAR HEMOGLOBIN 25.7 pg (27.0-33.0); MEAN CORPUSCULAR HGB CONC 29.4 g/dl (32.0-36.5); MEAN CORPUSCULAR VOLUME 87.5 fl (80.0-96.0); MONO # 0.8 10^3/uL (0.0-0.8); MONO % 4.6 % (2.0-8.0); NEUTROPHILS # 14.9 10^3/uL (1.5-8.5); NEUTROPHILS % 91.7 % (36.0-66.0); PLATELET COUNT, AUTOMATED 330 10^3/uL (150-450); RED BLOOD COUNT 3.77 10^6/uL (4.00-5.40); WHITE BLOOD COUNT 16.3 10^3/uL (4.0-10.0)
[2024-09-07 11:51] LABS: CALCIUM LEVEL 9.3 MG/DL (8.3-10.6); CREATININE FOR GFR 1.17 MG/DL (0.55-1.30); GLOMERULAR FILTRATION RATE 46.9 (>32); POTASSIUM SERUM 3.3 MMOL/L (3.5-5.1)
[2024-09-07 12:00] VITALS: BP 145/65; TEMP 96.4; O2SAT 96
[2024-09-07] MEDS: POTASSIUM CHLORIDE 10MEQ SR TABLET PO ONE (15:10)
[2024-09-07 16:00] VITALS: BP 134/62; TEMP 96.9; O2SAT 97
[2024-09-07 18:50] VITALS: O2SAT 98
[2024-09-07 20:04] VITALS: BP 163/71; TEMP 97; O2SAT 98
[2024-09-08 04:10] VITALS: BP 138/64; TEMP 96.9; O2SAT 95
[2024-09-08 07:12] LABS: BASO % 0.2 % (0.0-1.0); EOS # 0.3 10^3/uL (0.0-0.5); EOS % 2.1 % (0.0-3.0); HEMATOCRIT 30.2 % (36.0-47.0); HEMOGLOBIN 8.9 g/dl (12.0-15.5); LYMPH # 0.6 10^3/uL (1.5-5.0); LYMPH % 3.9 % (24.0-44.0); MEAN CORPUSCULAR HEMOGLOBIN 25.9 pg (27.0-33.0); MEAN CORPUSCULAR HGB CONC 29.5 g/dl (32.0-36.5); MEAN CORPUSCULAR VOLUME 87.8 fl (80.0-96.0); MONO # 1.2 10^3/uL (0.0-0.8); MONO % 7.5 % (2.0-8.0); NEUTROPHILS # 13.4 10^3/uL (1.5-8.5); NEUTROPHILS % 85.8 % (36.0-66.0); PLATELET COUNT, AUTOMATED 302 10^3/uL (150-450); RED BLOOD COUNT 3.44 10^6/uL (4.00-5.40); WHITE BLOOD COUNT 15.6 10^3/uL (4.0-10.0)
[2024-09-08 07:26] LABS: CALCIUM LEVEL 9.2 MG/DL (8.3-10.6); CREATININE FOR GFR 1.05 MG/DL (0.55-1.30); GLOMERULAR FILTRATION RATE 53.2 (>32); MAGNESIUM LEVEL 2.2 MG/DL (1.8-2.4); POTASSIUM SERUM 3.8 MMOL/L (3.5-5.1)
[2024-09-08 07:36] VITALS: BP 149/66; TEMP 97.3; O2SAT 100
[2024-09-08 09:32] LABS: PROCALCITONIN 0.06 ng/ml
[2024-09-08 12:00] VITALS: BP 177/76; TEMP 97.5; O2SAT 100
[2024-09-08] MEDS: POTASSIUM CHLORIDE 10MEQ SR TABLET PO SCH (12:14)
[2024-09-08] MEDS: FUROSEMIDE 100MG/10ML VIAL IV SCH (12:21)
[2024-09-08 16:25] VITALS: BP 152/70; TEMP 97.7; O2SAT 95
[2024-09-08 17:02] VITALS: BP 148/66; TEMP 98.6; O2SAT 97
[2024-09-08 20:02] VITALS: BP 150/66; TEMP 97.9; O2SAT 95
[2024-09-09 03:39] VITALS: BP 148/65; TEMP 98.1; O2SAT 97
[2024-09-09 08:42] LABS: BASO % 0.2 % (0.0-1.0); EOS # 0.4 10^3/uL (0.0-0.5); EOS % 2.3 % (0.0-3.0); HEMATOCRIT 29.4 % (36.0-47.0); HEMOGLOBIN 8.7 g/dl (12.0-15.5); LYMPH # 0.7 10^3/uL (1.5-5.0); LYMPH % 4.5 % (24.0-44.0); MEAN CORPUSCULAR HEMOGLOBIN 25.4 pg (27.0-33.0); MEAN CORPUSCULAR HGB CONC 29.6 g/dl (32.0-36.5); MEAN CORPUSCULAR VOLUME 85.7 fl (80.0-96.0); MONO # 1.1 10^3/uL (0.0-0.8); MONO % 7.3 % (2.0-8.0); NEUTROPHILS # 13.1 10^3/uL (1.5-8.5); NEUTROPHILS % 85.2 % (36.0-66.0); PLATELET COUNT, AUTOMATED 311 10^3/uL (150-450); RED BLOOD COUNT 3.43 10^6/uL (4.00-5.40); WHITE BLOOD COUNT 15.4 10^3/uL (4.0-10.0)
[2024-09-09 09:05] LABS: CALCIUM LEVEL 9.4 MG/DL (8.3-10.6); CREATININE FOR GFR 1.13 MG/DL (0.55-1.30); GLOMERULAR FILTRATION RATE 48.8 (>32); POTASSIUM SERUM 4.1 MMOL/L (3.5-5.1)
[2024-09-09] MEDS ORDERED: MIRALAX *UNIT DOSE* 17GM PACKET PO PRN (09:40)
[2024-09-09 11:35] LABS: INR 1.16; PROTHROMBIN TIME 15.1 SECONDS (12.5-14.5)
[2024-09-09] MEDS: NS 1,000 ML IV SCH (11:50)
[2024-09-09] MEDS: ceFAZolin SOD 2 GM in IV 1 EA IV ONE (11:50)
[2024-09-09 12:00] VITALS: BP 155/59; TEMP 98.1; O2SAT 97
[2024-09-09] MEDS: FUROSEMIDE 100MG/10ML VIAL IV SCH (12:37)
[2024-09-09 12:39] VITALS: BP 157/57
[2024-09-09 13:15] LABS: ERYTHROCYTE SEDIMENTATION RATE 52 mm/hr (0-30)
[2024-09-09] MEDS ORDERED: ATROPINE SULFATE 1% OPHTH SOLN 2ML BTL SL PRN (14:05)
[2024-09-09] MEDS ORDERED: ONDANSETRON 4MG ORAL DISINTEGRATING TAB PO PRN (14:05)
[2024-09-09] MEDS: MORPHINE 10MG/0.5ML ORAL CONCENTRATE SOLUTION U/D SL SCH (17:18)
[2024-09-09] MEDS: METOPROLOL TART 50 MG TAB PO SCH (20:32)
[2024-09-09] MEDS: LEVEMIR (INSULIN DETEMIR) 1 UNITS/0.01ML SC SCH (20:32)
[2024-09-10] MEDS: LORazepam 1 MG TAB PO PRN (06:38)
[2024-09-10] MEDS: FUROSEMIDE 20 MG TAB PO SCH (08:03)
[2024-09-11] MEDS: HYOSCYAMINE SULFATE 0.125 MG SUBL TABLET PO PRN (07:51)
[2024-09-11] MEDS: MORPHINE 10MG/0.5ML ORAL CONCENTRATE SOLUTION U/D SL PRN (18:28)
[2024-09-12] MEDS ORDERED: VENTAER INH (09:55)
== END 2024-09-12 12:28 | DRG 871 ==
LOC: M ED 11:56 → EDBD 11:56 → M ED INP 18:37 → M ICU 19:57 → M PCU 09-01 17:51 → M MSPAV 09-08 16:54
PROVIDERS: ADMIT Internal Medicine Pulmonary Disease; ATTEND Internal Medicine
PROC: B246ZZZ Ultrasonography of Right and Left Heart (ICD-10-PCS; principal; 2024-08-31)
PROC: 0W993ZZ Drainage of Right Pleural Cavity, Percutaneous Approach (ICD-10-PCS; 2024-08-31)
DX: A41.9 Sepsis, unspecified organism (principal); J96.01 Acute respiratory failure with hypoxia; G93.41 Metabolic encephalopathy; J96.02 Acute respiratory failure with hypercapnia; I50.33 Acute on chronic diastolic (congestive) heart failure; R65.21 Severe sepsis with septic shock; J15.69 Pneumonia due to other Gram-negative bacteria; I13.0 Hypertensive heart and chronic kidney disease with heart failure and stage 1 through stage 4 chronic kidney disease, or unspecified chronic kidney disease; J90 Pleural effusion, not elsewhere classified; N17.9 Acute kidney failure, unspecified; E87.1 Hypo-osmolality and hyponatremia; J44.0 Chronic obstructive pulmonary disease with (acute) lower respiratory infection; Z66 Do not resuscitate; R00.0 Tachycardia, unspecified; S12.100D Unspecified displaced fracture of second cervical vertebra, subsequent encounter for fracture with routine healing; I35.0 Nonrheumatic aortic (valve) stenosis; I25.10 Atherosclerotic heart disease of native coronary artery without angina pectoris; I48.91 Unspecified atrial fibrillation; I49.5 Sick sinus syndrome; E11.22 Type 2 diabetes mellitus with diabetic chronic kidney disease; N18.30 Chronic kidney disease, stage 3 unspecified; E87.5 Hyperkalemia; R68.0 Hypothermia, not associated with low environmental temperature; E11.649 Type 2 diabetes mellitus with hypoglycemia without coma; Z79.4 Long term (current) use of insulin; Z79.84 Long term (current) use of oral hypoglycemic drugs; Z79.899 Other long term (current) drug therapy; Z95.5 Presence of coronary angioplasty implant and graft; Z95.0 Presence of cardiac pacemaker; Z95.2 Presence of prosthetic heart valve; Z86.73 Personal history of transient ischemic attack (TIA), and cerebral infarction without residual deficits; Z87.891 Personal history of nicotine dependence

== ENCOUNTER → 2024-09-05 | Outpatient (REF) ==
[~2024-09-05] MED LIST changes: +D31000CA4 PO; +LASI20TA3 PO; +MELA5TAB7 PO; +METF500T13 PO
== END ==
PROVIDERS: ATTEND Internal Medicine
DX: I48.91 Unspecified atrial fibrillation (principal); Z53.8 Procedure and treatment not carried out for other reasons